=== PATIENT | female | born 1965 | race Caucasian/White ===

== ENCOUNTER 2016-11-06 08:03 | Emergency (ER) | payer OTHER ==
--- NOTE | 2016-11-06 08:34 | ERPHSYRPT ---
- History of Present Illness Time Seen by Provider: 11/06/16 08:19 Source: patient Exam Limitations: no limitations Patient Subjective Stated Complaint: pt arrived ambulatory, co dizziness since last night, had to have someone help her to bathroom due to dizziness, pressure to left side of face, had recent URI, and was on antiboitcs, no nausea or headache Triage Nursing Assessment: pt alert, resp easy, no facial drooping, moves all ext well, Physician History: This is a 51-year-old white female she arrives with complaints of feeling dizzy her described as a vertigo worse with turning her head symptoms since last night. She states last night she was dizzy enough to where she had to have someone help her to the bathroom. She states she is not having any movement problems she does experience dizziness she has no chest pain no shortness of breath she is moving all extremities she has had no speech problems. She does feel like she has pressure behind her left eye around her left eye she has had a recent sinus infection. Past medical history includes high blood pressure and seasonal allergies. Past surgical history includes bone spurs on her toes. Timing/Duration: yesterday (symptoms since last night) Severity: moderate Modifying Factors: Improves With: medication (patient took Augmentin yesterday) , movement (worse dizziness with moving her head). Worsens With: eating, immobilization, rest, acetaminophen, ibuprofen Associated Symptoms: No nausea, No vomiting, No abdominal pain, No shortness of breath, No heartburn, No diaphoresis, No cough, No chills, No chest pain, No fever, No headaches, No loss of appetite, No malaise, No rash, No syncope, No seizure, No weakness, No other Allergies/Adverse Reactions: Corticosteroids (Glucocorticoids) Allergy (Intermediate, Verified 09/07/15 15:53 ) CHF PT REPORTS STEROIDS GAVE HER CHF. Home Medications: Hydrochlorothiazide 25 mg [hydroDIURIL 25 MG] 25 mg PO DAILY 09/05/14 [ History] Potassium Chloride 10 Meq Tab* [Klor Con 10 MEQ] 10 meq PO DAILY 09/05/14 [ History] Metoprolol Succinate 50 mg [Toprol Xl 50 MG] 25 mg PO DAILY 06/01/15 [ History] Ranitidine HCl [Zantac] 150 mg PO DAILY 06/01/15 [History] Hx Tetanus, Diphtheria Vaccination/Date Given: Yes Hx Influenza Vaccination/Date Given: No Hx Pneumococcal Vaccination/Date Given: No Immunizations Up to Date: Yes - Review of Systems Constitutional: No Fever, No Chills Eyes: No Symptoms, Other (patient feels like she has pressure around her left eue), No Discharge, No Eye Pain, No Eye Redness, No Itchy, No Photophobia, No Tearing, No Vision Changes, No Double Vision, No Foreign Body Sensation Ears, Nose, & Throat: Nose Congestion, Sinus Drainage, No Ear Pain, No Ear Discharge, No Hearing Changes, No Tinnitus, No Nose Pain, No Nose Discharge, No Epistaxis, No Mouth Pain, No Mouth Swelling, No Loose Teeth, No Throat Pain, No Throat Swelling, No Hoarse, No Painful Swallowing, No Snoring, No Stridor Respiratory: No Cough, No Dyspnea Cardiac: No Chest Pain, No Edema, No Syncope Abdominal/Gastrointestinal: No Abdominal Pain, No Nausea, No Vomiting, No Diarrhea Genitourinary Symptoms: No Dysuria Musculoskeletal: No Back Pain, No Neck Pain Skin: No Rash Neurological: Dizziness, Vertigo (dizzy with turning her head), No Focal Weakness, No Gait Changes, No Headache, No Irritability, No Lethargy, No Paralysis, No Parasthesia, No Seizure, No Sensory Changes, No Speech Changes, No Tics, No Tremors Psychological: No Symptoms Endocrine: No Symptoms All Other Systems: Reviewed and Negative - Past Medical History Pertinent Past Medical History: Yes Neurological History: No Pertinent History ENT History: No Pertinent History Cardiac History: Hypertension Other Medical History: seasonal allergies - Past Surgical History Past Surgical History: Yes Neuro Surgical History: No Pertinent History Cardiac: No Pertinent History Respiratory: No Pertinent History Gastrointestinal: No Pertinent History Genitourinary: No Pertinent History Musculoskeletal: Other Female Surgical History: No Pertinent History Other Surgical History: bone spurs - Social History Smoking Status: Never smoker Exposure to second hand smoke: No Drug Use: none Patient Lives Alone: No - Female History Hx Last Menstrual Period: post - Nursing Vital Signs Nursing Vital Signs: Initial Vital Signs Temperature 97.4 F Temperature Source Oral Pulse Rate 87 Respiratory Rate 16 Blood Pressure [] 148/83 Pain Intensity 0 - Physical Exam General Appearance: no apparent distress, alert Eye Exam: PERRL/EOMI, eyes nml inspection Ears, Nose, Throat Exam: TMs normal, pharynx normal, moist mucous membranes, other (patient with yellow sinus drainage and boggy nasal mucosa no sinus tenderness with percussion) Neck Exam: normal inspection, non-tender, supple, full range of motion Respiratory Exam: normal breath sounds, lungs clear, No respiratory distress Cardiovascular Exam: regular rate/rhythm, normal heart sounds, normal peripheral pulses Gastrointestinal/Abdomen Exam: soft, normal bowel sounds, No tenderness, No mass Back Exam: normal inspection, normal range of motion, No CVA tenderness, No vertebral tenderness Extremity Exam: normal inspection, normal range of motion, pelvis stable Neurologic Exam: alert, oriented x 3, cooperative, normal mood/affect, nml cerebellar function, nml station & gait, sensation nml, No motor deficits Skin Exam: normal color, warm, dry, No rash Lymphatic Exam: No adenopathy SpO2 Interpretation: normal (99%) SpO2: 99 Oxygen Delivery: Room Air - Course Nursing assessment & vital signs reviewed: Yes EKG Interpreted by Me: RATE (77 bpm), Sinus Rhythm, NORMAL AXIS, Other (EKG normal sinus rhythm 77 bpm normal axis R's R prime in lead [address] or T wave changes noted) - CT Exams Head CT Interpretation: Discussed w/radiologist, Other (head CT without contrast: No acute intracranial abnormalities, incidental new pansinusitis) Ordered Tests: Active Orders 24 hr Category Date Time Status EKG-ER Only STAT Care 11/06/16 08:27 Active IV Insertion STAT Care 11/06/16 08:27 Active Orthostatic Vital Signs STAT Care 11/06/16 08:27 Active HEAD WITHOUT CONTRAST [CT] Stat Exams 11/06/16 08:28 Completed CBC W DIFF Stat Lab 11/06/16 08:20 Completed CMP Stat Lab 11/06/16 08:20 Completed Medication Summary Discontinued Medications Generic Name Dose Route Start Last Admin Trade Name Freq PRN Reason Stop Dose Admin Aspirin 162 mg 11/06/16 09:07 11/06/16 09:13 Baby Aspirin 81 Mg Chew PO 11/06/16 09:08 Not Given STAT ONE Lab/Rad Data: Laboratory Result Diagrams 11/06/16 08:20 11/06/16 08:20 Laboratory Results 11/06/16 11/06/16 Range/Units 08:20 08:20 WBC 7.4 (4.0-10.5) K/mm3 RBC 5.09 (4.1-5.4) M/mm3 Hgb 15.4 (12.0-16.0) gm/dl Hct 43.5 (35-47) % MCV 85.5 (78-100) fl MCH 30.3 (26-32) pg MCHC 35.4 (32-36) g/dl RDW 13.6 (11.5-14.0) % Plt Count 223 (150-450) K/mm3 MPV 9.5 (6-9.5) fl Gran % 52.9 (36.0-66.0) % Lymphocytes % 39.6 (24.0-44.0) % Monocytes % 5.1 (0.0-12.0) % Eosinophils % 2.3 (0.00-5.0) % Basophils % 0.1 (0.0-0.4) % Basophils # 0.01 (0-0.4) Sodium 141 (136-145) mEq/L Potassium 3.2 L (3.5-5.1) mEq/L Chloride 103 (98-107) mEq/L Carbon Dioxide 27.2 (21-32) mEq/L Anion Gap 14.1 (5-15) MEQ/L BUN 16 (9-20) mg/dL Creatinine 0.95 (0.55-1.30) mg/dl Estimated GFR > 60 ML/MIN Glucose 113 H (70-110) MG/DL Calcium 9.6 (8.5-10.1) mg/dL Total Bilirubin 0.7 (0.2-1.0) mg/dL AST 27 (15-37) U/L ALT 62 (12-78) U/L Alkaline Phosphatase 70 (46-116) U/L Serum Total Protein 8.1 (6.4-8.2) gm/dL Albumin 4.3 (3.4-5.0) g/dL - Progress Progress: improved Progress Note: 11/06/16 08:37 This is a 51-year-old white female with history of high blood pressure seasonal allergies who was recently had a sinus infection and has been on antibiotics past she arrives with complaint of dizziness worse with turning her head she states that she was unstable walking secondary to this vertigo dizziness which is to be a vertigo and had to have somebody get to the bathroom last night she has not been having any problems moving she has no focal weakness she does feel some pressure in her left maxillary region and inferior to her eye, She states that she took an Augmentin tablet yesterday. Patient arrives with an increased blood pressure she states her blood pressure is up because "I am mad" and she also did not take her morning blood pressure medications. She has no chest pain no shortness of breath she has no facial droop or problems moving. 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 Will go ahead and obtain CT of head CBC CMP EKG orthostatic vital signs. 11/06/16 09:[address] remarkable for sinusitis CBC essentially normal, chemistry remarkable for a potassium of 3.2 otherwise essentially normal. I have offered patient Antivert however she does not want this. I've offered patient aspirin 162 mg, she does not want this either. Will write for Augmentin 500 mg 3 times a day for 10 days. Will release patient. Patient's blood pressure is improved will have her take her home medications which include hydrochlorothiazide Toprol and potassium. 11/06/16 09:11 - Departure Time of Disposition: 09:11 Departure Disposition: Home Clinical Impression: Vertigo Sinusitis Qualifiers: Sinusitis location: unspecified location Chronicity: acute Recurrence: not specified as recurrent Qualified Code(s): J01.90 - Acute sinusitis, unspecified Condition: Fair Critical Care Time: No Referrals: INESSA DARBY [Primary Care Provider] - Additional Instructions: Return home. Plenty of fluids. Augmentin 500 mg orally 3 times a day for 10 days. Follow-up with your family doctor follow-up return for acute distress or for severe symptoms. . Prescriptions: Amox Tr/Potass Clav. 500 mg [Augmentin 500-125 Tablet] 500 mg PO TID #30 tablet
[2016-11-06 08:50] LABS: BASOPHIL % 0.1 % (0.0-0.4); Eosinophil % 2.3 % (0.00-5.0); Granulocytes % 52.9 % (36.0-66.0); Lymphocytes % 39.6 % (24.0-44.0); Mean Cell Volume 85.5 fl (78-100); Mean Corpuscular Hemoglobin 30.3 pg (26-32); Mean Platelet Volume 9.5 fl (6-9.5); Monocytes % 5.1 % (0.0-12.0); Platelet Count 223 K/mm3 (150-450); Red Blood Count 5.09 M/mm3 (4.1-5.4); Red Cell Distribution Width 13.6 % (11.5-14.0); White Blood Count 7.4 K/mm3 (4.0-10.5)
--- NOTE | 2016-11-06 09:00 | XRAY ---
Indication: Intermittent vertigo. Multiple contiguous axial images obtained through the head without contrast. Comparison: April 23, 2007. Again normal-appearing brain parenchyma, ventricles, and bony calvarium. There is now near-complete opacification of both sphenoid sinuses with lesser degree both ethmoid and left maxillary sinuses. Mastoid air cells are pneumatized and clear. Impression: Again no acute intracranial abnormalities. Incidental new pansinusitis. CTDI 70.21
[2016-11-06 09:04] VITALS: O2SAT 99
[2016-11-06 09:07] LABS: ALBUMIN 4.3 g/dL (3.4-5.0); ALKALINE PHOSPHATASE 70 U/L (46-116); ANION GAP 14.1 MEQ/L (5-15); BILIRUBIN,TOTAL 0.7 mg/dL (0.2-1.0); BLOOD UREA NITROGEN 16 mg/dL (9-20); CHLORIDE 103 mEq/L (98-107); Carbon Dioxide 27.2 mEq/L (21-32); Glucose 113 MG/DL (70-110); Potassium 3.2 mEq/L (3.5-5.1); SGOT/AST 27 U/L (15-37); SGPT/ALT 62 U/L (12-78); SODIUM 141 mEq/L (136-145); Total Protein 8.1 gm/dL (6.4-8.2)
[2016-11-06] MEDS ORDERED: BABY ASPIRIN 81 MG CHEW PO ONE (09:07)
[2016-11-06 09:46] VITALS: BP 146/84; PULSE 79
== END 2016-11-06 09:46 | disposition home or self-care (01) ==
LOC: ED 08:03
DX: J01.90 Acute sinusitis, unspecified (principal); R42 Dizziness and giddiness; I10 Essential (primary) hypertension
CPT/HCPCS: 36000; 36415; 70450; 80053; 85025; 93005; 99283; 99284

== ENCOUNTER 2017-03-07 23:36 | Emergency (ER) | payer OTHER ==
[2017-03-07 23:48] VITALS: BP 156/82; PULSE 72; O2SAT 98
--- NOTE | 2017-03-08 00:02 | ERPHSYRPT ---
- History of Present Illness Time Seen by Provider: 03/07/17 23:50 Source: patient Exam Limitations: no limitations Patient Subjective Stated Complaint: patient woke up tonite with dizzyness and states she has sinus infection causing her to have vertigo and shes out of antibiotics for it. states when she moved her head at all she becomes very dizzy Triage Nursing Assessment: pt alert nad orietned x3, pupils perrla2, lung sounds clear, pulses strong and equal bilateral, patients gait steady ambulated to bed well from waiting room. Physician History: The patient is a 52-year-old female who complains of dizziness that she states is caused by sinusitis. She had some sinus pain about a week ago. She took 3 days of amoxicillin that she had left over that resulted in improvement. Since the amoxicillin, things began to get worse. Tonight when she moves her head from side to side or up and down, she gets dizzy. The room is not spinning but she feels like her brain is moving. October 2016 she had the same thing happened to her. She was seen in this emergency room and a head CT was done at that time. The CT scan showed acute pansinusitis. She was given Augmentin with good results. Her past medical history is significant for sinusitis, hypertension, and anxiety. Timing/Duration: week(s) (1) Severity: moderate Character of Deficits: other (dizziness) Deficits: cannot stand Baseline/Normal Cognition: alert oriented x 3 Current Cognition: alert oriented x 3 Baseline Gait: walks w/o assistance Associated Symptoms: ringing in ears (chronic) Allergies/Adverse Reactions: Corticosteroids (Glucocorticoids) Allergy (Intermediate, Verified 09/07/15 15:53 ) CHF PT REPORTS STEROIDS GAVE HER CHF. Home Medications: Hydrochlorothiazide 25 mg [hydroDIURIL 25 MG] 25 mg PO DAILY 09/05/14 [ History] Potassium Chloride 10 Meq Tab* [Klor Con 10 MEQ] 10 meq PO DAILY 09/05/14 [ History] Metoprolol Succinate 50 mg [Toprol Xl 50 MG] 25 mg PO DAILY 06/01/15 [ History] Ranitidine HCl [Zantac] 150 mg PO DAILY 06/01/15 [History] Hx Tetanus, Diphtheria Vaccination/Date Given: Yes Hx Influenza Vaccination/Date Given: No Hx Pneumococcal Vaccination/Date Given: No Immunizations Up to Date: Yes - Review of Systems Constitutional: No Fever, No Chills Eyes: No Symptoms Ears, Nose, & Throat: Sinus Drainage Respiratory: No Cough, No Dyspnea Cardiac: No Chest Pain, No Edema, No Syncope Abdominal/Gastrointestinal: No Abdominal Pain, No Nausea, No Vomiting, No Diarrhea Genitourinary Symptoms: No Dysuria Musculoskeletal: No Back Pain, No Neck Pain Skin: No Rash Neurological: Dizziness Psychological: No Symptoms Endocrine: No Symptoms Hematologic/Lymphatic: No Symptoms Immunological/Allergic: No Symptoms All Other Systems: Reviewed and Negative - Past Medical History Pertinent Past Medical History: Yes Neurological History: No Pertinent History ENT History: No Pertinent History Cardiac History: Hypertension Other Medical History: seasonal allergies - Past Surgical History Past Surgical History: Yes Neuro Surgical History: No Pertinent History Cardiac: No Pertinent History Respiratory: No Pertinent History Gastrointestinal: No Pertinent History Genitourinary: No Pertinent History Musculoskeletal: Other Female Surgical History: No Pertinent History Other Surgical History: bone spurs - Social History Smoking Status: Never smoker Exposure to second hand smoke: No Drug Use: none Patient Lives Alone: No - Nursing Vital Signs Nursing Vital Signs: Initial Vital Signs Temperature 98.4 F Temperature Source Oral Pulse Rate 72 Respiratory Rate 20 Blood Pressure [Right Arm] 156/82 Pain Intensity 0 - [place]strander Coma Scale Best Eye Response (Ostrander): (4) open spontaneously Best Verbal Response (Ostrander): (5) oriented Best Motor Response (David): (6) obeys commands [place] Total: 15 - Physical Exam General Appearance: no apparent distress, alert Eye Exam: bilateral eye: normal inspection, PERRL, EOMI Ears, Nose, Throat Exam: normal ENT inspection, moist mucous membranes Neck Exam: normal inspection, non-tender, supple Respiratory: normal breath sounds, lungs clear, airway intact, No respiratory distress Cardiovascular: regular rate/rhythm, No edema Gastrointestinal: soft, No tenderness, No distention Pelvic Exam: not done Rectal Exam: not done Back Exam: normal inspection Extremity Exam: normal inspection, No pedal edema 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 Take Augmentin 875 twice a day for 10 days. You tell me that high doses of steroids has caused congestive heart failure in the past. Today I only want you to take 1 mg daily of prednisone for 14 days. If you notice any rapid increase in weight gain, stopped taking the prednisone and contact your family doctor. Prescriptions: Amoxicillin/Potassium Clav [Augmentin 875-125 Tablet] 875 mg PO BID #20 tablet Prednisone 10 mg [Deltasone 10 mg] 1 mg PO UD #14 tablet
[2017-03-08] MEDS ORDERED: Augmentin 875-125 Tablet PO ONE (00:24)
[2017-03-08] MEDS ORDERED: Augmentin 875-125 Tablet ONE (00:32)
== END 2017-03-08 00:36 | disposition home or self-care (01) ==
LOC: ED 23:36
DX: J32.9 Chronic sinusitis, unspecified (principal); R42 Dizziness and giddiness; I10 Essential (primary) hypertension
CPT/HCPCS: 99283; A9270-GY

== ENCOUNTER 2018-03-25 08:51 | Emergency (ER) | payer OTHER ==
--- NOTE | 2018-03-25 09:19 | ERPHSYRPT ---
- History of Present Illness Time Seen by Provider: 03/25/18 08:57 Source: patient Exam Limitations: no limitations Patient Subjective Stated Complaint: Pt states "I have had a sore throat for the past two weeks. I went to the clinic and they say that I cannot keep taking antibiotics so I came here. I have an appointment with kristen this afternoon but you did not look busy so I came here." Triage Nursing Assessment: Pt alert and oriented X 3, skin pwd Pt ambulates with an upright steady gait, able to speak in clear full sentences. throat appearance is red. Physician History: mild to mod sorethroat for 2 weeks, +cough and painful swallowing, speech fluent , no rash, no fever, no injury, able to eat without difficulty Allergies/Adverse Reactions: Corticosteroids (Glucocorticoids) Allergy (Intermediate, Verified 09/07/15 15:53 ) CHF PT REPORTS STEROIDS GAVE HER CHF. Home Medications: Hydrochlorothiazide 25 mg [hydroDIURIL 25 MG] 25 mg PO DAILY 09/05/14 [ History] Potassium Chloride 10 Meq Tab* [Klor Con 10 MEQ] 10 meq PO DAILY 09/05/14 [ History] Metoprolol Succinate 50 mg [Toprol Xl 50 MG] 25 mg PO DAILY 06/01/15 [ History] Ranitidine HCl [Zantac] 150 mg PO DAILY 06/01/15 [History] Hx Tetanus, Diphtheria Vaccination/Date Given: No Hx Influenza Vaccination/Date Given: No Hx Pneumococcal Vaccination/Date Given: No Immunizations Up to Date: Yes - Review of Systems Constitutional: No Fever Eyes: No Eye Redness Ears, Nose, & Throat: Throat Pain, No Mouth Swelling, No Hoarse Respiratory: Cough, No Cyanosis, No Wheezing Cardiac: No Chest Pain Abdominal/Gastrointestinal: No Abdominal Pain, No Vomiting Musculoskeletal: No Neck Pain Skin: No Rash Neurological: No Dizziness Psychological: No Symptoms - Past Medical History Pertinent Past Medical History: Yes Neurological History: No Pertinent History ENT History: No Pertinent History Cardiac History: Hypertension Other Medical History: seasonal allergies - Past Surgical History Past Surgical History: Yes Neuro Surgical History: No Pertinent History Cardiac: No Pertinent History Respiratory: No Pertinent History Gastrointestinal: No Pertinent History Genitourinary: No Pertinent History Musculoskeletal: Other Female Surgical History: No Pertinent History Other Surgical History: bone spurs - Social History Smoking Status: Never smoker Exposure to second hand smoke: No Drug Use: none Patient Lives Alone: No - Female History Hx Last Menstrual Period: menopause - Nursing Vital Signs Nursing Vital Signs: Initial Vital Signs Temperature 98.3 F 03/25/18 08:57 Pulse Rate 90 03/25/18 08:57 Respiratory Rate 18 03/25/18 08:57 Blood Pressure 153/86 03/25/18 08:57 O2 Sat by Pulse Oximetry 99 03/25/18 08:57 Pain Scale Pain Intensity 4 - Physical Exam General Appearance: no apparent distress Eye Exam: eyes nml inspection Ears, Nose, Throat Exam: moist mucous membranes, pharyngeal erythema, other (no peritonsillar mass) Neck Exam: normal inspection, supple, full range of motion Respiratory Exam: normal breath sounds, lungs clear Cardiovascular Exam: regular rate/rhythm Gastrointestinal/Abdomen Exam: No distention Extremity Exam: normal range of motion Neurologic Exam: alert, oriented x 3, cooperative Skin Exam: normal color, warm, dry SpO2 Interpretation: normal SpO2: 99 Oxygen Delivery: Room Air - Course Nursing assessment & vital signs reviewed: Yes - Radiology Exams Chest X-ray Interpretation: Discussed w/ radiologist, No Infiltrates Ordered Tests: Active Orders 24 hr Category Date Time Status CHEST 2 VIEWS (PA AND LAT) Stat Exams 03/25/18 09:32 Completed [place] Screen Stat Lab 03/25/18 09:25 Completed Lab/Rad Data: Laboratory Results 03/25/18 03/25/18 Range/Units 09:57 09:25 Monoscreen NEGATIVE (Negative) Group A Strep Antibody NEGATIVE (NEGATIVE) - Progress Progress: unchanged Air Movement: good Progress Note: 03/25/18 10:[address] Subramanian today as scheduled previously, return if worse, pt refused pain med or antibiotic, differential d/w pt as viral syndrome or cancer Counseled pt/family regarding: lab results, diagnosis, need for follow-up, rad results - Departure Time of Disposition: 10:54 Departure Disposition: Home Clinical Impression: Sore throat Condition: Stable Critical Care Time: No Referrals: IENSSA SUBRAMANIAN [Primary Care Provider] - Instructions: Sore Throat, Adult (DC)
--- NOTE | 2018-03-25 09:40 | XRAY ---
Exam: Two-view chest from 03/25/2018. Comparison: Two-view chest from 09/20/2014. Indication: Cough, sore throat. Findings: Upright PA and lateral chest films were obtained. The heart size and contour are normal. The jovanna and mediastinal structures appear unremarkable. There is slight tortuosity of the descending thoracic aorta. A stable small calcified granuloma is seen at the lateral left lung base. There has been a good inspiratory effort. No air space infiltrates, vascular congestion, pneumothorax, or pleural fluid is seen. Moderate anterior lateral osteophyte formation is seen at several contiguous lower thoracic vertebra. The visualized upper abdomen appears unremarkable. Impression: 1. No infiltrates to suggest pneumonia or other acute cardiopulmonary disease is seen.
[2018-03-25 11:01] VITALS: BP 156/90; PULSE 65; O2SAT 97
== END 2018-03-25 11:05 | disposition home or self-care (01) ==
LOC: ED 08:51
DX: J02.9 Acute pharyngitis, unspecified (principal); I10 Essential (primary) hypertension
CPT/HCPCS: 36415; 71046; 86308; 87651; 99284

== ENCOUNTER 2018-04-13 12:10 | Emergency (ER) | payer OTHER ==
--- NOTE | 2018-04-13 12:59 | ERPHSYRPT ---
- History of Present Illness Time Seen by Provider: 04/13/18 12:53 Source: patient Exam Limitations: no limitations Patient Subjective Stated Complaint: pt states she dropped a cinder block on her left foot approx 30 mins [employer]. reports pain and swelling to foot. Triage Nursing Assessment: pt is aox3, pupils perrl, resps easy and non labored , skin is pink warm dry. laceration measuring approx 4 cm in length, bruising and minimal bleeding is present upon exam, skin is well approximated, slight swelling noted to dorsal left foot. sensation is intact, pedal pulses strong and equal bilat. pt was ambulatory to exam room. pt is unable to move left great toe due to previous surgery to remove multiple bone spurs. Physician History: The patient is a 53-year-old female with her daughter complaining that she accidentally dropped a concrete block on her left foot prior to arrival. She and her daughter were carrying the concrete block while cleaning up her daughter 's yard. There was some bleeding over the great toe joint. There is minimal pain. She did not take any Tylenol or ibuprofen. She's had bone spurs removed from that toe joint previously. She denies numbness or tingling. Her last tetanus vaccination was 2 years ago. Method of Injury: direct blow Occurred: just prior to arrival Quality: constant Severity of Pain-Max: mild Severity of Pain-Current: mild Lower Extremities Pain: foot: left, 1st toe: left Modifying Factors: Improves With: nothing Associated Symptoms: none Allergies/Adverse Reactions: Androgenic Anabolic Steroid Allergy (Verified 04/13/18 12:35) Hx Tetanus, Diphtheria Vaccination/Date Given: Yes Hx Influenza Vaccination/Date Given: No Hx Pneumococcal Vaccination/Date Given: No Immunizations Up to Date: Yes - Review of Systems Constitutional: No Fever, No Chills Eyes: No Symptoms Ears, Nose, & Throat: No Symptoms Respiratory: No Cough, No Dyspnea Cardiac: No Chest Pain, No Edema, No Syncope Abdominal/Gastrointestinal: No Abdominal Pain, No Nausea, No Vomiting, No Diarrhea Genitourinary Symptoms: No Dysuria Musculoskeletal: Injury, Joint Pain, No Back Pain, No Neck Pain Skin: No Rash Neurological: No Dizziness, No Focal Weakness, No Sensory Changes Psychological: No Symptoms Endocrine: No Symptoms Hematologic/Lymphatic: No Symptoms Immunological/Allergic: No Symptoms All Other Systems: Reviewed and Negative - Past Medical History Pertinent Past Medical History: No - Past Surgical History Past Surgical History: Yes Musculoskeletal: Orthopedic Surgery Female Surgical History: Other Other Surgical History: bone spurs left foot - Social History Smoking Status: Never smoker Drug Use: none Patient Lives Alone: No - Female History Hx Now: No - Nursing Vital Signs Nursing Vital Signs: Initial Vital Signs Temperature 97.7 F 04/13/18 12:14 Pulse Rate 80 04/13/18 12:14 Respiratory Rate 20 04/13/18 12:14 Blood Pressure 164/89 04/13/18 12:14 O2 Sat by Pulse Oximetry 99 04/13/18 12:14 Pain Scale Pain Intensity 3 - Physical Exam General Appearance: alert Eyes, Ears, Nose, Throat Exam: moist mucous membranes Neck Exam: non-tender, supple Cardiovascular/Respiratory Exam: chest non-tender, normal breath sounds, regular rate/rhythm, no respiratory distress Gastrointestinal/Abdominal Exam: non-tender, guarding Back Exam: normal inspection, No vertebral tenderness Hips Exam: bilateral: normal inspection Legs Exam: bilateral leg: normal inspection Knees Exam: bilateral knee: normal inspection Ankle Exam: bilateral ankle: normal inspection Foot Exam: right foot: normal inspection, left foot: soft tissue tenderness, swelling (left MTP joint) Neuro/Tendon Exam: normal sensation, normal motor functions Mental Status Exam: alert, oriented x 3, cooperative Skin Exam: normal color, warm, dry, ecchymosis (left MTP joint) SpO2 Interpretation: normal SpO2: 99 Oxygen Delivery: Room Air Ordered Tests: Active Orders 24 hr Category Date Time Status FOOT (MINIMUM 3 VIEWS) Stat Exams 04/13/18 13:03 Taken - Departure Time of Disposition: 13:33 Departure Disposition: Home Clinical Impression: Contusion of left foot Condition: Stable Critical Care Time: No Referrals: INESSA DARBY [Primary Care Provider] - Additional Instructions: You have a contusion on your left foot. There are no broken bones. Take Tylenol and ibuprofen as needed. Apply ice to the area as needed. Follow-up as needed.
[2018-04-13 13:42] VITALS: BP 127/80; PULSE 72; O2SAT 97
--- NOTE | 2018-04-13 21:35 | XRAY ---
Indication: Pain and laceration following injury. Comparison: None 3 nonweightbearing views of the left foot demonstrates large posterior heel spur, mild 1st MTP degenerative arthropathy, and mild anterior forefoot soft tissue swelling. No other bony, articular, or soft tissue abnormalities.
== END 2018-04-13 13:50 | disposition home or self-care (01) ==
LOC: ED 12:10 → MERGE 12:10 → ED 13:50
DX: S90.32XA Contusion of left foot, initial encounter (principal); W22.8XXA Striking against or struck by other objects, initial encounter
CPT/HCPCS: 73630; 99283

== ENCOUNTER 2018-08-29 17:58 | Emergency (ER) | payer OTHER ==
--- NOTE | 2018-08-29 18:29 | ERPHSYRPT ---
- History of Present Illness Time Seen by Provider: 08/29/18 18:25 Source: patient Exam Limitations: no limitations Physician History: 53-year-old white female with history of high blood pressure, reflux, hypokalemia Patient arrives with complaint of palpitations lasting all day. She states that she is not having chest pain no shortness of breath no nausea no vomiting. Patient states that she has chronic reflux which has been treated in the past and she states she is planning on seeing a mica plate layer hand. Past medical history includes orthopedic surgery, high blood pressure, reflux, hypokalemia Past surgical history includes bone spurs of the left foot Social history patient denies tobacco alcohol or illicit drug use. Timing/Duration: today Severity: moderate Modifying Factors: Improves With: nothing Associated Symptoms: No nausea, No vomiting, No abdominal pain, No shortness of breath, No heartburn, No diaphoresis, No cough, No chills, No chest pain, No fever, No headaches, No loss of appetite, No malaise, No rash, No syncope, No seizure, No weakness Allergies/Adverse Reactions: Corticosteroids (Glucocorticoids) Allergy (Intermediate, Verified 08/29/18 18:13 ) CHF PT REPORTS STEROIDS GAVE HER CHF. Androgenic Anabolic Steroid Allergy (Verified 08/29/18 18:13) Home Medications: Hydrochlorothiazide 25 mg [hydroDIURIL 25 MG] 25 mg PO DAILY 09/05/14 [ History] Potassium Chloride 10 Meq Tab* [Klor Con 10 MEQ] 10 meq PO BID 09/05/14 [ History] Metoprolol Succinate 50 mg [Toprol Xl 50 MG] 25 mg PO DAILY 06/01/15 [ History] Fluticasone Propionate [Flonase NASAL] 16 gm NS DAILY 08/29/18 [History] Omeprazole Magnesium [Prilosec Otc] 20 mg PO DAILY 08/29/18 [History] Hx Tetanus, Diphtheria Vaccination/Date Given: No Hx Influenza Vaccination/Date Given: No Hx Pneumococcal Vaccination/Date Given: No - Review of Systems Constitutional: No Fever, No Chills Eyes: No Symptoms Ears, Nose, & Throat: No Symptoms Respiratory: No Cough, No Dyspnea Cardiac: Palpitations, No Chest Pain, No Edema, No Syncope, No Orthopnea, No PND Abdominal/Gastrointestinal: No Abdominal Pain, No Nausea, No Vomiting, No Diarrhea Genitourinary Symptoms: No Dysuria Musculoskeletal: No Back Pain, No Neck Pain Skin: No Rash Neurological: No Dizziness, No Focal Weakness, No Sensory Changes Psychological: No Symptoms Endocrine: No Symptoms All Other Systems: Reviewed and Negative - Past Medical History Pertinent Past Medical History: Yes Neurological History: No Pertinent History ENT History: No Pertinent History Cardiac History: Hypertension Other Medical History: seasonal allergies - Past Surgical History Past Surgical History: Yes Neuro Surgical History: No Pertinent History Cardiac: No Pertinent History Respiratory: No Pertinent History Gastrointestinal: No Pertinent History Genitourinary: No Pertinent History Musculoskeletal: Orthopedic Surgery, Other Female Surgical History: No Pertinent History, Other Other Surgical History: bone spurs - Social History Smoking Status: Never smoker Exposure to second hand smoke: No Drug Use: none Patient Lives Alone: No - Nursing Vital Signs Nursing Vital Signs: Initial Vital Signs Temperature 97.3 F 08/29/18 18:01 Pulse Rate 82 08/29/18 18:01 Respiratory Rate 16 08/29/18 18:01 Blood Pressure 175/82 08/29/18 18:01 O2 Sat by Pulse Oximetry 100 08/29/18 18:01 Pain Scale Pain Intensity 0 - Physical Exam General Appearance: no apparent distress, alert Eye Exam: PERRL/EOMI, eyes nml inspection Ears, Nose, Throat Exam: normal ENT inspection, TMs normal, pharynx normal, moist mucous membranes Neck Exam: normal inspection, non-tender, supple, full range of motion Respiratory Exam: normal breath sounds, lungs clear, No respiratory distress Cardiovascular Exam: regular rate/rhythm, normal heart sounds, normal peripheral pulses, capillary refill <2 sec Gastrointestinal/Abdomen Exam: soft, normal bowel sounds, No tenderness, No mass Back Exam: normal inspection, normal range of motion, No CVA tenderness, No vertebral tenderness Extremity Exam: normal inspection, normal range of motion, pelvis stable Neurologic Exam: alert, oriented x 3, cooperative, storage consultant II-XII 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 as tested, normal mood/affect, nml cerebellar function, nml station & gait, sensation nml, No motor deficits Skin Exam: normal color, warm, dry, No rash Lymphatic Exam: No adenopathy SpO2 Interpretation: normal - Course Nursing assessment & vital signs reviewed: Yes EKG Interpreted by Me: RATE (73 bpm), Sinus Rhythm, NORMAL AXIS, Other (EKG sinus rhythm, 73 bpm, normal axis, no acute ST or T wave changes, no changes compared to November 06, 2016) Ordered Tests: Active Orders 24 hr Category Date Time Status EKG-ER Only STAT Care 08/29/18 18:22 Active IV Insertion STAT Care 08/29/18 18:22 Active AMYLASE Stat Lab 08/29/18 18:40 Completed CBC W DIFF Stat Lab 08/29/18 18:40 Completed CMP Stat Lab 08/29/18 18:40 Completed LIPASE Stat Lab 08/29/18 18:40 Completed TROPONIN Q3H Lab 08/29/18 18:40 Completed TROPONIN Q3H Lab 08/29/18 21:30 Ordered TROPONIN Q3H Lab 08/30/18 00:30 Ordered TROPONIN Q3H Lab 08/30/18 03:30 Ordered TROPONIN Q3H Lab 08/30/18 06:30 Ordered TSH [TSH, 3RD Generation] Stat Lab 08/29/18 18:40 Received Medication Summary Discontinued Medications Generic Name Dose Route Start Last Admin Trade Name Freq PRN Reason Stop Dose Admin Potassium Bicarbonate 50 meq 08/29/18 19:28 08/29/18 19:44 K-Lyte 25 Meq PO 08/29/18 19:29 50 meq STAT ONE Administration Potassium Bicarbonate Confirm 08/29/18 19:37 K-Lyte 25 Meq Administered 08/29/18 19:38 Dose 50 meq .ROUTE .STK-MED ONE Lab/Rad Data: Laboratory Result Diagrams 08/29/18 18:40 08/29/18 18:40 Laboratory Results 08/29/18 08/29/18 08/29/18 Range/Units 18:40 18:40 18:40 WBC (4.0-10.5) K/mm3 RBC (4.1-5.4) M/mm3 Hgb (12.0-16.0) gm/dl Hct (35-47) % MCV (78-100) fl MCH (26-32) pg MCHC (32-36) g/dl RDW (11.5-14.0) % Plt Count (150-450) K/mm3 MPV (6-9.5) fl Gran % (36.0-66.0) % Eos # (Auto) (0-0.5) Absolute Lymphs (auto) (1.0-4.6) Absolute Monos (auto) (0.0-1.3) Lymphocytes % (24.0-44.0) % Monocytes % (0.0-12.0) % Eosinophils % (0.00-5.0) % Basophils % (0.0-0.4) % Absolute Granulocytes (1.4-6.9) Basophils # (0-0.4) Sodium 140 (137-145) mmol/L Potassium 3.2 L (3.5-5.1) mmol/L Chloride 102 (98-107) mmol/L Carbon Dioxide 27 (22-30) mmol/L Anion Gap 13.7 (5-15) MEQ/L BUN 15 (7-17) mg/dL Creatinine 0.77 (0.52-1.04) mg/dL Estimated GFR > 60.0 ML/MIN Glucose 102 (74-106) mg/dL Calcium 9.7 (8.4-10.2) mg/dL Total Bilirubin 0.70 (0.2-1.3) mg/dL AST 28 (14-36) U/L ALT 20 (0-35) U/L Alkaline Phosphatase 76 (38-126) U/L Troponin I < 0.012 (0.000-0.034) ng/mL Serum Total Protein 7.4 (6.3-8.2) g/dL Albumin 4.6 (3.5-5.0) g/dL Amylase 56 (30-110) U/L Lipase 140 (23-300) U/L Free T4 1.09 (0.76-1.46) ng/dL 12//18 Range/Units 18:40 WBC 5.5 (4.0-10.5) K/mm3 RBC 4.59 (4.1-5.4) M/mm3 Hgb 13.8 (12.0-16.0) gm/dl Hct 39.3 (35-47) % MCV 85.6 (78-100) fl MCH 30.1 (26-32) pg MCHC 35.1 (32-36) g/dl RDW 13.6 (11.5-14.0) % Plt Count 190 (150-450) K/mm3 MPV 9.4 (6-9.5) fl Gran % 45.9 (36.0-66.0) % Eos # (Auto) 0.17 (0-0.5) Absolute Lymphs (auto) 2.34 (1.0-4.6) Absolute Monos (auto) 0.43 (0.0-1.3) Lymphocytes % 42.9 (24.0-44.0) % Monocytes % 7.9 (0.0-12.0) % Eosinophils % 3.1 (0.00-5.0) % Basophils % 0.2 (0.0-0.4) % Absolute Granulocytes 2.50 (1.4-6.9) Basophils # 0.01 (0-0.4) Sodium (137-145) mmol/L Potassium (3.5-5.1) mmol/L Chloride (98-107) mmol/L Carbon Dioxide (22-30) mmol/L Anion Gap (5-15) MEQ/L BUN (7-17) mg/dL Creatinine (0.52-1.04) mg/dL Estimated GFR ML/MIN Glucose (74-106) mg/dL Calcium (8.4-10.2) mg/dL Total Bilirubin (0.2-1.3) mg/dL AST (14-36) U/L ALT (0-35) U/L Alkaline Phosphatase (38-126) U/L Troponin I (0.000-0.034) ng/mL Serum Total Protein (6.3-8.2) g/dL Albumin (3.5-5.0) g/dL Amylase (30-110) U/L Lipase (23-300) U/L Free T4 (0.76-1.46) ng/dL - Progress Progress: improved Progress Note: 08/29/18 19:46 53-year-old white female arrives with complaint of palpitations throughout the day today she denies any chest pain no shortness breath no nausea no vomiting. Patient's EKG remarkable for sinus rhythm [address] or T wave changes no change from November 06, 2016 Patient's vitals have been stable Patient's CBC CMP are normal with the exception of a potassium of 3.2 patient's free T4 is normal. patient does state that she has been under streess lately. Will go ahead and release patient she has had no chest pain. Patient does state that her blood pressure has been running somewhat low on she' s backed off on her metoprolol to once every 3 days she also states that she is taking hydrochlorothiazide. Will have patient go home rest plenty of fluids. Will give patient 50 mEq of potassium chloride orally. Patient is to follow-up with Dr. Subramanian she is call tomorrow to arrange an appointment. She is to return for acute distress or for severe symptoms. . - Departure Time of Disposition: 19:48 Departure Disposition: Home Clinical Impression: Palpitations, Hypokalemia Condition: Fair Critical Care Time: No Referrals: INESSA SUBRAMANIAN [Primary Care Provider] - Instructions: Palpitations (DC) Additional Instructions: Return home. Plenty of fluids. Medications as prescribed by your family doctor. Follow-up with your family doctor call tomorrow morning and arrange an appointment. Return for acute distress or for severe symptoms.
[2018-08-29 18:46] LABS: BASOPHIL % 0.2 % (0.0-0.4); Basophil (Absolute #) 0.01 (0-0.4); Eosinophil % 3.1 % (0.00-5.0); Eosinophil (Absolute #) 0.17 (0-0.5); Granulocytes % 45.9 % (36.0-66.0); Hematocrit 39.3 % (35-47); Hemoglobin 13.8 gm/dl (12.0-16.0); Lymphocyte (Absolute #) 2.34 (1.0-4.6); Lymphocytes % 42.9 % (24.0-44.0); Mean Cell Volume 85.6 fl (78-100); Mean Corpuscular Hemoglobin 30.1 pg (26-32); Mean Corpuscular Hgb Concent. 35.1 g/dl (32-36); Mean Platelet Volume 9.4 fl (6-9.5); Monocyte (Absolute #) 0.43 (0.0-1.3); Monocytes % 7.9 % (0.0-12.0); Platelet Count 190 K/mm3 (150-450); Red Blood Count 4.59 M/mm3 (4.1-5.4); Red Cell Distribution Width 13.6 % (11.5-14.0); White Blood Count 5.5 K/mm3 (4.0-10.5)
[2018-08-29 19:17] LABS: ALBUMIN 4.6 g/dL (3.5-5.0); ALKALINE PHOSPHATASE 76 U/L (38-126); AMYLASE 56 U/L (30-110); ANION GAP 13.7 MEQ/L (5-15); BLOOD UREA NITROGEN 15 mg/dL (7-17); CHLORIDE 102 mmol/L (98-107); Calcium 9.7 mg/dL (8.4-10.2); Carbon Dioxide 27 mmol/L (22-30); Creatinine 1 0.77 mg/dL (0.52-1.04); Glucose 102 mg/dL (74-106); LIPASE 140 U/L (23-300); Potassium 3.2 mmol/L (3.5-5.1); SGOT/AST 28 U/L (14-36); SGPT/ALT 20 U/L (0-35); SODIUM 140 mmol/L (137-145); Total Protein 7.4 g/dL (6.3-8.2)
[2018-08-29] MEDS ORDERED: K-LYTE 25 MEQ PO ONE (19:28)
[2018-08-29] MEDS ORDERED: K-LYTE 25 MEQ ONE (19:37)
[2018-08-29 19:43] VITALS: BP 140/88; PULSE 68; O2SAT 98
== END 2018-08-29 20:35 | disposition home or self-care (01) ==
LOC: ED 17:58
DX: R00.2 Palpitations (principal); Z79.899 Other long term (current) drug therapy; E87.6 Hypokalemia
CPT/HCPCS: 36000; 36415; 80053; 82150; 83690; 84439; 84443; 84484; 85025; 93005; 99284; A9270-GY

== ENCOUNTER 2018-12-23 22:10 | Emergency (ER) | payer OTHER ==
--- NOTE | 2018-12-23 22:24 | ERPHSYRPT ---
- History of Present Illness Time Seen by Provider: 12/23/18 22:24 Historian: patient Exam Limitations: no limitations Physician History: 53 y/o white female with known gerdz on maximum meds for this. pt underwent upper endoscopy 11/18/18. pt to see her gi specialist this coming sunday. concerned because of some cp and spit up frothy fluids after ingesting 2 roll aid tabs. Timing/Duration: today Activities at Onset: other (post roll aids ingestion) Quality: burning, sharpness Abdominal Pain Onset Location: other (substernal) Pain Radiation: no radiation Severity of Pain-Max: mild Severity of Pain-Current: mild Modifying Factors: Improves With: antacids (improved now) Associated Symptoms: chest pain, No loss of appetite, No nausea, No vomiting Previous symptoms: same symptoms as today Allergies/Adverse Reactions: Corticosteroids (Glucocorticoids) Allergy (Intermediate, Verified 12/23/18 22:35 ) CHF PT REPORTS STEROIDS GAVE HER CHF. Androgenic Anabolic Steroid Allergy (Verified 12/23/18 22:35) egg Allergy (Verified 12/23/18 22:35) Home Medications: Potassium Chloride 10 Meq Tab* [Klor Con 10 MEQ] 8 meq PO BID 09/05/14 [ History] Fluticasone Propionate [Flonase NASAL] 16 gm NS DAILY 08/29/18 [History] Lansoprazole [Prevacid] 30 mg PO BID 12/23/18 [History] Loratadine 10 mg [Claritin 10 mg] 10 mg PO DAILY 12/23/18 [History] Hx Tetanus, Diphtheria Vaccination/Date Given: No Hx Influenza Vaccination/Date Given: No Hx Pneumococcal Vaccination/Date Given: No - Review of Systems Constitutional: No Symptoms Eyes: No Symptoms Ears, Nose, & Throat: No Symptoms Respiratory: No Symptoms Cardiac: Chest Pain Abdominal/Gastrointestinal: No Symptoms Genitourinary Symptoms: No Symptoms Musculoskeletal: No Symptoms Skin: No Symptoms Neurological: No Symptoms Psychological: No Symptoms Endocrine: No Symptoms Hematologic/Lymphatic: No Symptoms Immunological/Allergic: No Symptoms All Other Systems: Reviewed and Negative - Past Medical History Pertinent Past Medical History: Yes Neurological History: No Pertinent History ENT History: No Pertinent History Cardiac History: Hypertension Respiratory History: No Pertinent History Endocrine Medical History: No Pertinent History Musculoskeletal History: No Pertinent History GI Medical History: GERD History: No Pertinent History Psycho-Social History: No Pertinent History Female Reproductive Disorders: No Pertinent History Other Medical History: seasonal allergies - Past Surgical History Past Surgical History: Yes Neuro Surgical History: No Pertinent History Cardiac: No Pertinent History Respiratory: No Pertinent History Gastrointestinal: No Pertinent History Genitourinary: No Pertinent History Musculoskeletal: Orthopedic Surgery, Other Female Surgical History: No Pertinent History, Other Other Surgical History: bone spurs - Social History Smoking Status: Never smoker Exposure to second hand smoke: No Drug Use: none Patient Lives Alone: No - Nursing Vital Signs Nursing Vital Signs: Initial Vital Signs Pulse Rate 77 12/23/18 22:20 Respiratory Rate 16 12/23/18 22:20 Blood Pressure 156/90 12/23/18 22:20 O2 Sat by Pulse Oximetry 100 12/23/18 22:20 Pain Scale Pain Intensity 0 - Physical Exam General Appearance: no apparent distress, alert, anxiety Eye Exam: PERRL/EOMI, eyes nml inspection Ears, Nose, Throat Exam: normal ENT inspection, moist mucous membranes Neck Exam: normal inspection, non-tender, supple, full range of motion Respiratory Exam: normal breath sounds, chest tenderness, lungs clear, airway intact, No respiratory distress Cardiovascular Exam: regular rate/rhythm, normal heart sounds, normal peripheral pulses Pelvic Exam: not done Rectal Exam: not done Back Exam: normal inspection, normal range of motion, No CVA tenderness, No vertebral tenderness Extremity Exam: normal inspection, normal range of motion, pelvis stable Neurologic Exam: alert, oriented x 3, cooperative, baseball winder II-XII nml as tested Skin Exam: normal color, warm, dry Lymphatic Exam: adenopathy SpO2 Interpretation: normal O2 Delivery: Room Air - Course Nursing assessment & vital signs reviewed: Yes Ordered Tests: Active Orders 24 hr Category Date Time Status Undertaker Assistant STAT Care 12/23/18 22:41 Active EKG-ER Only STAT Care 12/23/18 22:41 Active BMP Stat Lab 12/23/18 23:05 Completed CBC W DIFF Stat Lab 12/23/18 23:05 Completed D-DIMER QUANTITATION Stat Lab 12/23/18 23:05 Completed TROPONIN Q3H Lab 12/23/18 23:05 Completed TROPONIN Q3H Lab 12/24/18 01:45 Ordered TROPONIN Q3H Lab 12/24/18 04:45 Ordered TROPONIN Q3H Lab 12/24/18 07:45 Ordered TROPONIN Q3H Lab 12/24/18 10:45 Ordered Medication Summary Discontinued Medications Generic Name Dose Route Start Last Admin Trade Name Cosme PRN Reason Stop Dose Admin Al Hydrox/Mg Hydrox/Simethicone Confirm 12/23/18 22:58 Maalox Es 30 Ml Unit Dose Administered 12/23/18 22:59 Dose 30 ml .ROUTE .STK-MED ONE Lidocaine HCl Confirm 12/23/18 22:58 Xylocaine Hcl Viscous * Administered 12/23/18 22:59 Dose 1 ml .ROUTE .STK-MED ONE Magnesium Hydroxide 45 ml 12/23/18 22:41 12/23/18 23:03 Gi Cocktail 45 Ml (Maalox/Lidocaine) PO 12/23/18 22:42 45 ml STAT ONE Administration Lab/Rad Data: Laboratory Result Diagrams 12/23/18 23:05 12/23/18 23:05 Laboratory Results 12/23/18 12/23/18 12/23/18 Range/Units 23:05 23:05 23:05 WBC (4.0-10.5) K/mm3 RBC (4.1-5.4) M/mm3 Hgb (12.0-16.0) gm/dl Hct (35-47) % MCV (78-100) fl MCH (26-32) pg MCHC (32-36) g/dl RDW (11.5-14.0) % Plt Count (150-450) K/mm3 MPV (6-9.5) fl Gran % (36.0-66.0) % Eos # (Auto) (0-0.5) Absolute Lymphs (auto) (1.0-4.6) Absolute Monos (auto) (0.0-1.3) Lymphocytes % (24.0-44.0) % Monocytes % (0.0-12.0) % Eosinophils % (0.00-5.0) % Basophils % (0.0-0.4) % Absolute Granulocytes (1.4-6.9) Basophils # (0-0.4) D-Dimer 375 (215-500) ng/mL Sodium 140 (137-145) mmol/L Potassium 3.5 (3.5-5.1) mmol/L Chloride 104 (98-107) mmol/L Carbon Dioxide 26 (22-30) mmol/L Anion Gap 14.5 (5-15) MEQ/L BUN 19 H (7-17) mg/dL Creatinine 0.95 (0.52-1.04) mg/dL Estimated GFR > 60.0 ML/MIN Glucose 92 (74-106) mg/dL Calcium 10.0 (8.4-10.2) mg/dL Troponin I < 0.012 (0.000-0.034) ng/mL 12/23/18 Range/Units 23:05 WBC 5.2 (4.0-10.5) K/mm3 RBC 4.79 (4.1-5.4) M/mm3 Hgb 14.5 (12.0-16.0) gm/dl Hct 41.2 (35-47) % MCV 86.0 (78-100) fl MCH 30.3 (26-32) pg MCHC 35.2 (32-36) g/dl RDW 13.1 (11.5-14.0) % Plt Count 153 (150-450) K/mm3 MPV 9.6 H (6-9.5) fl Gran % 50.8 (36.0-66.0) % Eos # (Auto) 0.21 (0-0.5) Absolute Lymphs (auto) 1.87 (1.0-4.6) Absolute Monos (auto) 0.45 (0.0-1.3) Lymphocytes % 36.2 (24.0-44.0) % Monocytes % 8.7 (0.0-12.0) % Eosinophils % 4.1 (0.00-5.0) % Basophils % 0.2 (0.0-0.4) % Absolute Granulocytes 2.62 (1.4-6.9) Basophils # 0.01 (0-0.4) D-Dimer (215-500) ng/mL Sodium (137-145) mmol/L Potassium (3.5-5.1) mmol/L Chloride (98-107) mmol/L Carbon Dioxide (22-30) mmol/L Anion Gap (5-15) MEQ/L BUN (7-17) mg/dL Creatinine (0.52-1.04) mg/dL Estimated GFR ML/MIN Glucose (74-106) mg/dL Calcium (8.4-10.2) mg/dL Troponin I (0.000-0.034) ng/mL - Progress Progress: improved, re-examined Counseled pt/family regarding: lab results, diagnosis, need for follow-up - Departure Departure Disposition: Home Clinical Impression: Gastroesophageal reflux disease Condition: Stable Critical Care Time: No Referrals: INESSA DARBY [Primary Care Provider] - Additional Instructions: avoid fatty, greasy, spicy foods. sleep elevated with pillows or in a recliner. follow up with gi specialist. take your medications as prescribed.
[2018-12-23] MEDS ORDERED: XYLOCAINE HCl Viscous ONE (22:58)
[2018-12-23] MEDS ORDERED: MAALOX ES 30 ML UNIT DOSE ONE (22:58)
[2018-12-23] MEDS: GI COCKTAIL 45 ML (Maalox/Lidocaine) PO ONE (23:03)
[2018-12-23 23:12] LABS: BASOPHIL % 0.2 % (0.0-0.4); Basophil (Absolute #) 0.01 (0-0.4); Eosinophil % 4.1 % (0.00-5.0); Eosinophil (Absolute #) 0.21 (0-0.5); Granulocyte Absolute (ANC) 2.62 (1.4-6.9); Granulocytes % 50.8 % (36.0-66.0); Hematocrit 41.2 % (35-47); Hemoglobin 14.5 gm/dl (12.0-16.0); Lymphocyte (Absolute #) 1.87 (1.0-4.6); Lymphocytes % 36.2 % (24.0-44.0); Mean Corpuscular Hemoglobin 30.3 pg (26-32); Mean Corpuscular Hgb Concent. 35.2 g/dl (32-36); Mean Platelet Volume 9.6 fl (6-9.5); Monocyte (Absolute #) 0.45 (0.0-1.3); Monocytes % 8.7 % (0.0-12.0); Platelet Count 153 K/mm3 (150-450); Red Blood Count 4.79 M/mm3 (4.1-5.4); Red Cell Distribution Width 13.1 % (11.5-14.0); White Blood Count 5.2 K/mm3 (4.0-10.5)
[2018-12-23 23:36] LABS: ANION GAP 14.5 MEQ/L (5-15); BLOOD UREA NITROGEN 19 mg/dL (7-17); CHLORIDE 104 mmol/L (98-107); Carbon Dioxide 26 mmol/L (22-30); Creatinine 1 0.95 mg/dL (0.52-1.04); Glucose 92 mg/dL (74-106); Potassium 3.5 mmol/L (3.5-5.1); SODIUM 140 mmol/L (137-145)
[2018-12-24 00:17] VITALS: BP 137/89; PULSE 66; O2SAT 99
== END 2018-12-24 00:32 | disposition home or self-care (01) ==
LOC: ED 22:10
DX: K21.9 Gastro-esophageal reflux disease without esophagitis (principal); Z79.899 Other long term (current) drug therapy
CPT/HCPCS: 36415; 80048; 84484; 85025; 85379; 93005; 99284; A9270-GY

== ENCOUNTER 2019-03-19 13:54 | Emergency (ER) | payer OTHER ==
[2019-03-19] MEDS ORDERED: GI COCKTAIL 45 ML (Maalox/Lidocaine) PO ONE (14:41)
[2019-03-19] MEDS ORDERED: MAALOX ES 30 ML UNIT DOSE ONE (14:51)
[2019-03-19] MEDS ORDERED: XYLOCAINE HCl Viscous ONE (14:51)
--- NOTE | 2019-03-19 14:57 | ERPHSYRPT ---
- History of Present Illness Time Seen by Provider: 03/19/19 14:15 Source: patient, family Patient Subjective Stated Complaint: states is having acid reflux again today and meds are not helping. took prilosec and maalox today. states pain is sharp intermittent in jaws and throat. has had several workups and has not bee able to find out what is wrong. Triage Nursing Assessment: ambulated to room per self. skin w/d, color normal, resp easy. abd soft, nontender. normal bowel sounds. Physician History: 54 y/o white female presents with same chronic intermittent symptoms as 01/03. pt has sharp burning substernally up into throat. pt only on prilosec. pt has been evaluated by pcp and gi specialist for same sx. pt received gi cocktail in 01/03 and sx improved. sx onset with food intake. has seen an change control specialist and has eliminated several foods but sx persist. Timing/Duration: intermittent, other (chronic) Severity: mild Modifying Factors: Improves With: eating Associated Symptoms: chest pain, No nausea, No vomiting, No abdominal pain, No shortness of breath Allergies/Adverse Reactions: Corticosteroids (Glucocorticoids) Allergy (Intermediate, Verified 03/19/19 14:09 ) CHF PT REPORTS STEROIDS GAVE HER CHF. Androgenic Anabolic Steroid Allergy (Verified 03/19/19 14:09) egg Allergy (Verified 03/19/19 14:09) Home Medications: Fluticasone Propionate [Flonase NASAL] 16 gm NS DAILY 08/29/18 [History] Loratadine 10 mg [Claritin 10 mg] 10 mg PO DAILY 12/23/18 [History] Omeprazole 20 mg PO DAILY 03/19/19 [History] Pseudoephedrine HCl [Sudafed] 30 mg PO DAILY 03/19/19 [History] Hx Tetanus, Diphtheria Vaccination/Date Given: No Hx Influenza Vaccination/Date Given: No Hx Pneumococcal Vaccination/Date Given: No - Review of Systems Constitutional: No Symptoms Eyes: No Symptoms Ears, Nose, & Throat: No Symptoms Respiratory: No Symptoms Cardiac: Chest Pain Abdominal/Gastrointestinal: No Symptoms Genitourinary Symptoms: No Symptoms Musculoskeletal: No Symptoms Skin: No Symptoms Neurological: No Symptoms Psychological: No Symptoms Endocrine: No Symptoms Hematologic/Lymphatic: No Symptoms Immunological/Allergic: No Symptoms All Other Systems: Reviewed and Negative - Past Medical History Pertinent Past Medical History: Yes Neurological History: No Pertinent History ENT History: No Pertinent History Cardiac History: Hypertension Respiratory History: No Pertinent History Endocrine Medical History: No Pertinent History Musculoskeletal History: No Pertinent History GI Medical History: GERD History: No Pertinent History Psycho-Social History: No Pertinent History Female Reproductive Disorders: No Pertinent History Other Medical History: seasonal allergies - Past Surgical History Past Surgical History: Yes Neuro Surgical History: No Pertinent History Cardiac: No Pertinent History Respiratory: No Pertinent History Gastrointestinal: No Pertinent History Genitourinary: No Pertinent History Musculoskeletal: Orthopedic Surgery, Other Female Surgical History: No Pertinent History, Other Other Surgical History: bone spurs - Social History Smoking Status: Never smoker Exposure to second hand smoke: No Drug Use: none Patient Lives Alone: No - Female History Hx Now: No - Nursing Vital Signs Nursing Vital Signs: Initial Vital Signs Temperature 98.5 F 03/19/19 14:03 Pulse Rate 65 03/19/19 14:03 Respiratory Rate 16 03/19/19 14:03 Blood Pressure 155/98 03/19/19 14:03 O2 Sat by Pulse Oximetry 99 03/19/19 14:03 Pain Scale Pain Intensity 2 - Physical Exam General Appearance: no apparent distress, alert, anxiety Eye Exam: PERRL/EOMI, eyes nml inspection Ears, Nose, Throat Exam: normal ENT inspection, moist mucous membranes Neck Exam: normal inspection, non-tender, supple, full range of motion Respiratory Exam: normal breath sounds, chest tenderness, lungs clear, airway intact, No respiratory distress Cardiovascular Exam: regular rate/rhythm, normal heart sounds, normal peripheral pulses Gastrointestinal/Abdomen Exam: soft, normal bowel sounds, No tenderness Pelvic Exam: not done Rectal Exam: not done Back Exam: normal inspection, normal range of motion, No CVA tenderness, No vertebral tenderness Extremity Exam: normal inspection, normal range of motion, pelvis stable Neurologic Exam: alert, oriented x 3, cooperative, post commander II-XII nml as tested Skin Exam: normal color, warm, dry Lymphatic Exam: No adenopathy SpO2 Interpretation: normal SpO2: 99 O2 Delivery: Room Air - Course Nursing assessment & vital signs reviewed: Yes EKG Interpreted by Me: RATE (66), Sinus Rhythm, NORMAL AXIS, NORMAL QRS, Non- specific ST Changes, Other (no change from comparison ekg dated 12/23/18) Ordered Tests: Active Orders 24 hr Category Date Time Status EKG-ER Only STAT Care 03/19/19 14:41 Active IV Insertion STAT Care 03/19/19 14:41 Active AMYLASE Stat Lab 03/19/19 14:59 Completed CBC W DIFF Stat Lab 03/19/19 14:59 Completed CMP Stat Lab 03/19/19 14:59 Completed LIPASE Stat Lab 03/19/19 14:59 Completed TROPONIN Q3H Lab 03/19/19 14:59 Completed TROPONIN Q3H Lab 03/19/19 17:45 Ordered TROPONIN Q3H Lab 03/19/19 20:45 Ordered TROPONIN Q3H Lab 03/19/19 23:45 Ordered TROPONIN Q3H Lab 03/20/19 02:45 Ordered Medication Summary Discontinued Medications Generic Name Dose Route Start Last Admin Trade Name Freq PRN Reason Stop Dose Admin Al Hydrox/Mg Hydrox/Simethicone Confirm 03/19/19 14:51 Maalox Es 30 Ml Unit Dose Administered 03/19/19 14:52 Dose 30 ml .ROUTE .STK-MED ONE Lidocaine HCl Confirm 03/19/19 14:51 Xylocaine Hcl Viscous * Administered 03/19/19 14:52 Dose 15 ml .ROUTE .STK-MED ONE Magnesium Hydroxide 45 ml 03/19/19 14:41 03/19/19 14:53 Gi Cocktail 45 Ml (Maalox/Lidocaine) PO 03/19/19 14:42 45 ml STAT ONE Administration Lab/Rad Data: Laboratory Result Diagrams 03/19/19 14:59 03/19/19 14:59 Laboratory Results 03/19/19 03/19/19 03/19/19 Range/Units 14:59 14:59 14:59 WBC 6.0 (4.0-10.5) K/mm3 RBC 5.15 (4.1-5.4) M/mm3 Hgb 15.7 (12.0-16.0) gm/dl Hct 45.3 (35-47) % MCV 88.0 (78-100) fl MCH 30.5 (26-32) pg MCHC 34.7 (32-36) g/dl RDW 13.6 (11.5-14.0) % Plt Count 167 (150-450) K/mm3 MPV 9.5 (6-9.5) fl Gran % 64.4 (36.0-66.0) % Eos # (Auto) 0.19 (0-0.5) Absolute Lymphs (auto) 1.61 (1.0-4.6) Absolute Monos (auto) 0.33 (0.0-1.3) Lymphocytes % 26.7 (24.0-44.0) % Monocytes % 5.5 (0.0-12.0) % Eosinophils % 3.2 (0.00-5.0) % Basophils % 0.2 (0.0-0.4) % Absolute Granulocytes 3.89 (1.4-6.9) Basophils # 0.01 (0-0.4) Sodium 140 (137-145) mmol/L Potassium 3.6 (3.5-5.1) mmol/L Chloride 102 (98-107) mmol/L Carbon Dioxide 29 (22-30) mmol/L Anion Gap 12.3 (5-15) MEQ/L BUN 17 (7-17) mg/dL Creatinine 0.78 (0.52-1.04) mg/dL Estimated GFR > 60.0 ML/MIN Glucose 90 (74-106) mg/dL Calcium 9.4 (8.4-10.2) mg/dL Total Bilirubin 0.70 (0.2-1.3) mg/dL AST 36 (14-36) U/L ALT 53 H (0-35) U/L Alkaline Phosphatase 106 (38-126) U/L Troponin I < 0.012 (0.000-0.034) ng/mL Serum Total Protein 7.5 (6.3-8.2) g/dL Albumin 4.3 (3.5-5.0) g/dL Amylase 82 (30-110) U/L Lipase 134 (23-300) U/L - Progress Progress: unchanged Counseled pt/family regarding: lab results, diagnosis, need for follow-up - Departure Departure Disposition: Home Clinical Impression: Gastroesophageal reflux disease Condition: Stable Critical Care Time: No Referrals: INESSA PETERSON [Primary Care Provider] - Additional Instructions: Avoid fatty greasy spicy foods. follow up with dr. peterson to further evaluate gallbladder(ultrasound, HIDA scan) and pediatric associate for PH testing if indicated. Prescriptions: Sucralfate 1 gm [Carafate 1 GM] 1 g PO ACHS #40 tablet
[2019-03-19 15:03] LABS: BASOPHIL % 0.2 % (0.0-0.4); Basophil (Absolute #) 0.01 (0-0.4); Eosinophil % 3.2 % (0.00-5.0); Eosinophil (Absolute #) 0.19 (0-0.5); Granulocyte Absolute (ANC) 3.89 (1.4-6.9); Granulocytes % 64.4 % (36.0-66.0); Hematocrit 45.3 % (35-47); Hemoglobin 15.7 gm/dl (12.0-16.0); Lymphocyte (Absolute #) 1.61 (1.0-4.6); Lymphocytes % 26.7 % (24.0-44.0); Mean Corpuscular Hemoglobin 30.5 pg (26-32); Mean Corpuscular Hgb Concent. 34.7 g/dl (32-36); Mean Platelet Volume 9.5 fl (6-9.5); Monocyte (Absolute #) 0.33 (0.0-1.3); Monocytes % 5.5 % (0.0-12.0); Platelet Count 167 K/mm3 (150-450); Red Blood Count 5.15 M/mm3 (4.1-5.4); Red Cell Distribution Width 13.6 % (11.5-14.0)
[2019-03-19 15:15] LABS: ALBUMIN 4.3 g/dL (3.5-5.0); ALKALINE PHOSPHATASE 106 U/L (38-126); AMYLASE 82 U/L (30-110); ANION GAP 12.3 MEQ/L (5-15); BLOOD UREA NITROGEN 17 mg/dL (7-17); CHLORIDE 102 mmol/L (98-107); Calcium 9.4 mg/dL (8.4-10.2); Carbon Dioxide 29 mmol/L (22-30); Creatinine 1 0.78 mg/dL (0.52-1.04); Glucose 90 mg/dL (74-106); Potassium 3.6 mmol/L (3.5-5.1); SGOT/AST 36 U/L (14-36); SGPT/ALT 53 U/L (0-35); SODIUM 140 mmol/L (137-145); Total Protein 7.5 g/dL (6.3-8.2)
[2019-03-19 15:26] VITALS: BP 133/82
[2019-03-19 15:50] VITALS: PULSE 66; O2SAT 967
== END 2019-03-19 15:56 | disposition home or self-care (01) ==
LOC: ED 13:54
DX: K21.9 Gastro-esophageal reflux disease without esophagitis (principal); I10 Essential (primary) hypertension; Z79.899 Other long term (current) drug therapy; I50.9 Heart failure, unspecified
CPT/HCPCS: 36000; 36415; 80053; 82150; 83690; 84484; 85025; 93005; 99284; A9270-GY

== ENCOUNTER 2019-08-01 01:27 | Emergency (ER) | payer OTHER ==
[2019-08-01] MEDS ORDERED: MAALOX ES 30 ML UNIT DOSE PO ONE (01:55)
--- NOTE | 2019-08-01 02:01 | ERPHSYRPT ---
- History of Present Illness Time Seen by Provider: 08/01/19 01:45 Source: patient Exam Limitations: no limitations Patient Subjective Stated Complaint: pt states she woke up with acid reflux and stabbing pain in her throat. states when she has this pain she is not able to treat the reflux successfully at home Triage Nursing Assessment: pt alert and oriented, asnwers questions approp. pt ambulatory with steady gait noted. respirations nonlabored with lungs cta. abd soft and nontender to palpation. skin pink warm and dry. Physician History: Patient has been dealing with acid reflux issues for a year and a half and has a 95 pound weight loss due to not eating because of the swelling sensation and discomfort in her throat when she would eat. Patient had food allergy testing in the past, and she had 11 allergies come back positive, but she had no problem with the foods that she came back positive. Patient has had an EGD, small bowel follow through study, CT scan studies, Colonoscopy that have been negative for her acid reflux and weight loss issues with negative etiology to her symptoms from her specialists she has seen. Patient does take a daily omeprazole. Patient woke up with symptoms of her acid reflux in the back of her throat and had tried taking an antacid without any relief of her symptoms. She has had GI cocktails in the past which have helped her symptoms, but patient states she is out Maalox at home. Timing/Duration: abrupt onset Severity: moderate ENT Location: throat Prearrival Treatment: over the counter meds (took an antacid without any success ) Modifying Factors: Worsens With: lying down Associated Symptoms: No ear pain (R), No ear pain (L), No cough, No fever, No chills, No change in hearing, No dizziness, No drooling, No ear drainage, No facial pain/swelling, No headache, No hearing loss, No jaw pain, No malaise, No motion sickness, No nasal congestion/drainage, No epistaxis, No nasal foreign body, No neck pain, No poor fluid intake, No poor solids intake, No ringing of ears, No swollen glands, No sinus infection, No sore throat, No tooth pain, No difficulty swallowing, No voice change Allergies/Adverse Reactions: Corticosteroids (Glucocorticoids) Allergy (Intermediate, Verified 08/01/19 01:44 ) CHF PT REPORTS STEROIDS GAVE HER CHF. Androgenic Anabolic Steroid Allergy (Verified 08/01/19 01:44) egg Allergy (Verified 08/01/19 01:44) Home Medications: Fluticasone Propionate [Flonase NASAL] 16 gm NS DAILY 08/29/18 [History] Loratadine 10 mg [Claritin 10 mg] 10 mg PO DAILY 12/23/18 [History] Omeprazole 20 mg PO DAILY 03/19/19 [History] Hx Tetanus, Diphtheria Vaccination/Date Given: No Hx Influenza Vaccination/Date Given: No Hx Pneumococcal Vaccination/Date Given: No Immunizations Up to Date: No - Review of Systems Constitutional: No Fever, No Chills, No Fatigue Eyes: No Eye Pain, No Vision Changes Ears, Nose, & Throat: Throat Pain, No Nose Pain, No Nose Congestion, No Mouth Swelling, No Throat Swelling, No Painful Swallowing Respiratory: No Cough, No Dyspnea Cardiac: No Chest Pain, No Edema, No Syncope Abdominal/Gastrointestinal: No Abdominal Pain, No Nausea, No Vomiting, No Diarrhea, No Hematemesis, No Hematochezia, No Melena Genitourinary Symptoms: No Dysuria, No Flank Pain Musculoskeletal: No Back Pain, No Neck Pain, No Myalgias Skin: No Rash Neurological: No Dizziness, No Focal Weakness, No Sensory Changes Psychological: No Symptoms Endocrine: No Symptoms Hematologic/Lymphatic: No Easy Bleeding, No Easy Bruising All Other Systems: Reviewed and Negative - Past Medical History Pertinent Past Medical History: Yes Neurological History: No Pertinent History ENT History: No Pertinent History Cardiac History: Hypertension Respiratory History: No Pertinent History Endocrine Medical History: No Pertinent History Musculoskeletal History: No Pertinent History GI Medical History: GERD History: No Pertinent History Psycho-Social History: No Pertinent History Female Reproductive Disorders: No Pertinent History Other Medical History: seasonal allergies - Past Surgical History Past Surgical History: Yes Neuro Surgical History: No Pertinent History Cardiac: No Pertinent History Respiratory: No Pertinent History Gastrointestinal: No Pertinent History Genitourinary: No Pertinent History Musculoskeletal: Orthopedic Surgery, Other Female Surgical History: No Pertinent History, Other Other Surgical History: bone spurs - Social History Smoking Status: Never smoker Exposure to second hand smoke: No Drug Use: none Patient Lives Alone: No - Female History Hx Last Menstrual Period: post Hx Now: No - Nursing Vital Signs Nursing Vital Signs: Initial Vital Signs Temperature 97.4 F 08/01/19 01:37 Pulse Rate 62 08/01/19 01:37 Respiratory Rate 16 08/01/19 01:37 Blood Pressure 156/93 08/01/19 01:37 O2 Sat by Pulse Oximetry 99 08/01/19 01:37 Pain Scale Pain Intensity 4 - Physical Exam General Appearance: no apparent distress, alert Eye Exam: bilateral eye: normal inspection, PERRL, EOMI Ear Exam: bilateral ear: auricle normal, canal normal, TM normal Nasal Exam: normal inspection, No active bleeding, No discharge, No dried blood , No foreign body, No sinus tenderness Throat Exam: normal, pharynx normal, moist mucus membranes, No excessive drooling, No mandibular swelling, No pharynx swelling, No pharynx tenderness, No tongue swollen, No tonsillar exudate, No tonsillar swelling, No trismus, No uvula swelling Neck Exam: normal inspection, non-tender, supple, full range of motion, trachea midline, No JVD, No lymphadenopathy (R), No lymphadenopathy (L) Cardiovascular/Respiratory Exam: chest non-tender, normal breath sounds, regular rate/rhythm, heart sounds normal, no JVD, no M/R/G, no respiratory distress Abdominal Exam: non-tender, soft Neurologic Exam: alert, oriented x 3, cooperative, 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 tested, normal mood/affect, sensation nml, No motor deficits Skin Exam: normal color, warm, dry, No petechiae, No jaundice, No cyanosis SpO2 Interpretation: normal SpO2: 99 O2 Delivery: Room Air - Course Nursing assessment & vital signs reviewed: Yes Ordered Tests: Medication Summary Discontinued Medications Generic Name Dose Route Start Last Admin Trade Name Espinozaq PRN Reason Stop Dose Admin Al Hydrox/Mg Hydrox/Simethicone 30 ml 08/01/19 01:55 08/01/19 02:16 Maalox Es 30 Ml Unit Dose PO 08/01/19 01:56 30 ml STAT ONE Administration Al Hydrox/Mg Hydrox/Simethicone Confirm 08/01/19 02:06 Maalox Es 30 Ml Unit Dose Administered 08/01/19 02:07 Dose 30 ml .ROUTE .STK-MED ONE Sucralfate 1,000 mg 08/01/19 02:47 08/01/19 03:00 Carafate Suspension 1000 Mg/10 Ml PO 08/01/19 02:48 1,000 mg STAT ONE Administration - Progress Progress: improved Progress Note: 08/01/19 02:47 Patient feels better after Maalox, but still has some discomfort in her posterior pharynx. Patient declined earlier and now a rapid strep test due to having no sick contacts and having similar symptoms from her reflux such as the ones she is having now. Patient will be given Carafate suspension 1000mg PO times one since it has been over 30 minutes since taking Maalox. 08/01/19 03:37 Patient's symptoms have completely resolved after Carafate. Patient declines any further testing or treatment. She would like Carafate sent to her pharmacy. Counseled pt/family regarding: diagnosis, need for follow-up - Departure Departure Disposition: Home Clinical Impression: Throat discomfort, Essential hypertension Gastroesophageal reflux disease Qualifiers: Esophagitis presence: with esophagitis Qualified Code(s): K21.0 - Gastro- esophageal reflux disease with esophagitis Condition: Good Critical Care Time: No Referrals: INESSA DARBY [Primary Care Provider] - 08/01/19 Instructions: High Blood Pressure (DC), Sore Throat, Adult (DC), Acid Reflux ( Gastroesophageal Reflux Disease) in Adults Additional Instructions: Discharge/Care Plan ROGELIO PALOMOPRATIK was seen on 08/01/19 in the Emergency Room. The patient was counseled regarding Diagnosis need for follow up and when to return to the Emergency Room. Return immediately back to the emergency department if any worsening throat pain, new fever, any chest pain, any shortness of breath, no abdominal pain, new back pain, new vomiting or coughing up blood, or any other concerning signs or symptoms that were not present at today's emergency department visit for immediate reevaluation in the emergency department. Prescriptions given: Carafate 1000mg QID prn Discharge Note I have spoken with the patient and family. I have explained the patient's condition, diagnosis and treatment plan based on the information available to me at this time. I have answered the patient's and family's questions and addressed any concerns. The patient and family have as good understanding of the patient's diagnosis, condition and treatment plan as can be expected at this point. The vital signs have been stable. The patient's condition is stable and appropriate for discharge from the emergency department. The patient will pursue further outpatient evaluation with the primary care physician or other designated or consulting physician as outlined in the discharge instructions. The patient and family have received these instruction. The patient and family are aware that any significant change in condition or worsening of symptoms should prompt an immediate return to this or the closest emergency department or call 911. Prescriptions: Sucralfate 1000 mg/10 ml [Carafate SUSPENSION 1000 MG/10 ML] 1 gm PO Q6H PRN PRN #280 ml PRN Reason: Pain
[2019-08-01] MEDS ORDERED: MAALOX ES 30 ML UNIT DOSE ONE (02:06)
[2019-08-01] MEDS ORDERED: Carafate SUSPENSION 1000 MG/10 ML PO ONE (02:47)
[2019-08-01 02:49] VITALS: PULSE 67
[2019-08-01 02:51] VITALS: O2SAT 99
[2019-08-01 03:43] VITALS: BP 138/89
== END 2019-08-01 03:49 | disposition home or self-care (01) ==
LOC: ED 01:27
DX: R07.0 Pain in throat (principal); I10 Essential (primary) hypertension; K21.0 Gastro-esophageal reflux disease with esophagitis
CPT/HCPCS: 99283; A9270-GY

== ENCOUNTER 2023-02-02 16:18 | Emergency (ER) | payer OTHER ==
--- NOTE | 2023-02-02 16:26 | ERPHSYRPT ---
- History of Present Illness Time Seen by Provider: 02/02/23 16:26 Historian: patient Exam Limitations: no limitations Physician History: This patient is a 58-year-old overweight white female who presents with heartburn symptoms. She has had this issue several times. She has been diagnosed with significant food allergies and couple days ago this patient ate apples. She is now having heartburn symptoms. She does not have chest pain. She is not short of breath. She just wants to be sure there is no abnormalities on the heart enzyme level and twelve-lead EKG. In addition, she states the GI cocktail helped her symptoms tremendously. Patient last saw her gastr oenterologist approximately 1 year ago. Timing/Duration: day(s) (Last couple of days) Activities at Onset: none Quality: burning (Heartburn) Abdominal Pain Onset Location: epigastric (Into chest midline substernal) Pain Radiation: other (Substernal chest burning) Severity of Pain-Max: mild Severity of Pain-Current: mild Modifying Factors: Improves With: nothing Associated Symptoms: denies symptoms Previous symptoms: same symptoms as today Allergies/Adverse Reactions: Corticosteroids (Glucocorticoids) Allergy (Intermediate, Verified 08/01/19 01:44) CHF PT REPORTS STEROIDS GAVE HER CHF. Androgenic Anabolic Steroid Allergy (Verified 02/02/23 16:41) egg Allergy (Verified 08/01/19 01:44) Home Medications: Fluticasone Propionate [Flonase NASAL] 16 gm NS DAILY 08/29/18 [History] Loratadine 10 mg [Claritin 10 mg] 10 mg PO DAILY 12/23/18 [History] Omeprazole 20 mg PO DAILY 03/19/19 [History] Hx Tetanus, Diphtheria Vaccination/Date Given: No Hx Influenza Vaccination/Date Given: No Hx Pneumococcal Vaccination/Date Given: No Travel Risk - International Travel Have you traveled outside of the country in past 3 weeks: No - Coronavirus Screening Are you exhibiting any of the following symptoms?: No Close contact with a COVID-19 positive Pt in past 14-21 Days: No - Review of Systems Constitutional: No Symptoms Eyes: No Symptoms Ears, Nose, & Throat: No Symptoms Respiratory: No Symptoms Cardiac: Other (Heartburn) Abdominal/Gastrointestinal: No Symptoms Genitourinary Symptoms: No Symptoms Musculoskeletal: No Symptoms Skin: No Symptoms Neurological: No Symptoms Psychological: No Symptoms Endocrine: No Symptoms Hematologic/Lymphatic: No Symptoms Immunological/Allergic: No Symptoms All Other Systems: Reviewed and Negative - Past Medical History Pertinent Past Medical History: Yes Neurological History: No Pertinent History ENT History: No Pertinent History Cardiac History: Hypertension Respiratory History: No Pertinent History Endocrine Medical History: No Pertinent History Musculoskeletal History: No Pertinent History GI Medical History: GERD History: No Pertinent History Psycho-Social History: No Pertinent History Female Reproductive Disorders: No Pertinent History Other Medical History: seasonal allergies - Past Surgical History Past Surgical History: Yes Neuro Surgical History: No Pertinent History Cardiac: No Pertinent History Respiratory: No Pertinent History Gastrointestinal: No Pertinent History Genitourinary: No Pertinent History Musculoskeletal: Orthopedic Surgery, Other Female Surgical History: No Pertinent History, Other Other Surgical History: bone spurs - Social History Smoking Status: Never smoker Exposure to second hand smoke: No Drug Use: none Patient Lives Alone: No - Nursing Vital Signs Nursing Vital Signs: Initial Vital Signs Temperature 98.2 F 02/02/23 16:35 Pulse Rate 75 02/02/23 16:35 Respiratory Rate 17 02/02/23 16:35 Blood Pressure 153/97 02/02/23 16:35 O2 Sat by Pulse Oximetry 98 02/02/23 16:35 Pain Scale Pain Intensity 8 - Physical Exam General Appearance: no apparent distress, alert Eye Exam: PERRL/EOMI, eyes nml inspection Ears, Nose, Throat Exam: normal ENT inspection, moist mucous membranes Neck Exam: normal inspection, non-tender, supple, full range of motion Respiratory Exam: normal breath sounds, chest tenderness, lungs clear (Described as heartburn), airway intact, No respiratory distress Cardiovascular Exam: regular rate/rhythm, normal heart sounds, normal peripheral pulses Gastrointestinal/Abdomen Exam: soft, normal bowel sounds, No tenderness Pelvic Exam: not done Rectal Exam: not done Back Exam: normal inspection, normal range of motion, No CVA tenderness, No vertebral tenderness Extremity Exam: normal inspection, normal range of motion, pelvis stable Neurologic Exam: alert, oriented x 3, cooperative, excellence manager II-XII nml as tested, normal mood/affect, nml cerebellar function, nml station & gait, sensation nml Skin Exam: normal color, warm, dry Lymphatic Exam: No adenopathy SpO2 Interpretation: normal O2 Delivery: Room Air - Course Nursing assessment & vital signs reviewed: Yes EKG Interpreted by Me: RATE (72), Sinus Rhythm, NORMAL AXIS, NORMAL INTERVALS, NORMAL QRS, NORMAL ST-T, Other (No acute ischemic changes on today's twelve-lead EKG.) Ordered Tests: Active Orders 24 hr Category Date Time Status EKG-ER Only STAT Care 02/02/23 16:56 Active TROPONIN Q4H Lab 02/02/23 17:30 Completed TROPONIN Q4H Lab 02/02/23 21:00 Ordered TROPONIN Q4H Lab 02/03/23 01:00 Ordered Medication Summary Discontinued Medications Generic Name Dose Route Start Last Admin Trade Name Freq PRN Reason Stop Dose Admin Al Hydrox/Mg Hydrox/Simethicone Confirm 02/02/23 17:07 Mag Hydrox/Al Hydrox/Simeth 30 Ml Udcup Administered 02/02/23 17:08 Dose 30 ml .ROUTE .STK-MED ONE Lidocaine HCl Confirm 02/02/23 17:07 Lidocaine Hcl 2% Viscous 15 Ml Udcup Administered 02/02/23 17:08 Dose 15 ml .ROUTE .STK-MED ONE Magnesium Hydroxide 45 ml 02/02/23 16:57 02/02/23 17:07 Mag Hydrx/Alum Hyd/Simeth/Lido 45 Ml Bottle PO 02/02/23 16:58 45 ml STAT ONE Administration Lab/Rad Data: Laboratory Results 02/02/23 Range/Units 17:30 Troponin I < 0.012 (0.000-0.034) ng/mL - Progress Progress: improved Progress Note: 02/02/23 18:05 This patient's medical issue is 1 of low complexity. The level of complexity and the work-up performed was based on review of the patient's past medical history and review of the patient's medication list, drug allergy list and history of present illness as well as physical exam findings. This patient has recurrent symptoms. She just wanted to be sure that there was no changes that are acute on the EKG and her troponin. She also wanted to receive a GI cocktail which seems to help her recurrent symptoms. She will follow-up with her primary care physician and her ibm bpm developer on 02/05/2023 to make arrangements for further evaluation management. Patient was told to return to the emergency department if symptoms worsen. She is to continue take her medicine as prescribed. Counseled pt/family regarding: lab results, diagnosis, need for follow-up Medical Desision Making - Independent Historian Additional History obtained from: Spouse - Risk of complications Minimal Risk: Minimal risk of morbidity - Departure Departure Disposition: Home Clinical Impression: Gastroesophageal reflux disease Condition: Stable Critical Care Time: No Referrals: INESSA DARBY [Primary Care Provider] - Follow up/PCP as directed Additional Instructions: Avoid all your food allergies. Avoid fatty greasy spicy foods. Take your medication as prescribed. Call your primary care provider for further evaluation management on 02/05/2023. Return to the emergency department if symptoms worsen.
[2023-02-02] MEDS ORDERED: GI COCKTAIL 45 ML (Maalox/Lidocaine) PO ONE (16:57)
[2023-02-02] MEDS ORDERED: MAALOX ES 30 ML UNIT DOSE ONE (17:07)
[2023-02-02] MEDS ORDERED: XYLOCAINE VISCOUS 2% 15 ML CUP ONE (17:07)
[2023-02-02 18:06] VITALS: BP 134/93; PULSE 69; O2SAT 98
== END 2023-02-02 18:22 | disposition home or self-care (01) ==
LOC: ED 16:18
DX: K21.9 Gastro-esophageal reflux disease without esophagitis (principal); I10 Essential (primary) hypertension; Z79.899 Other long term (current) drug therapy
CPT/HCPCS: 36415; 84484; 93005; 99283; A9270-GY

== ENCOUNTER 2024-06-06 16:16 | Observation (INO) | payer OTHER ==
--- NOTE | 2024-06-06 16:59 | ERPHSYRPT ---
- History of Present Illness Time Seen by Provider: 06/06/24 16:47 Historian: patient Exam Limitations: no limitations Patient Subjective Stated Complaint: chest pain Triage Nursing Assessment: Pt brought to the ER by her , hypertensive, describes pain as pressure, pulses normal, skin n/w/d, pressure to medial chest that radiates to the back and began at approx 0500, no cardiac hx, doesn't appear to be in any distress Physician History: For about the past 12 hours pt has had dyspnea and constant mid anterior chest pressure and intermittent dull chest pain radiating to the back with episodes lasting about 1 second with severity of 4/10. Pt denies abdominal pain, vomiting, fever; admits to nausea for the past 12 hours. Aspirin Treatment Today: 81 mg x 4, provided by ED Allergies/Adverse Reactions: Corticosteroids (Glucocorticoids) Allergy (Intermediate, Verified 06/06/24 16:29) CHF PT REPORTS STEROIDS GAVE HER CHF. Androgenic Anabolic Steroid Allergy (Verified 06/06/24 16:29) chocolate Allergy (Verified 06/06/24 16:29) egg Allergy (Verified 06/06/24 16:29) gluten Allergy (Verified 06/06/24 16:29) lactase [From Dairy Aid] Allergy (Verified 06/06/24 16:29) oats Allergy (Verified 06/06/24 16:29) onion Allergy (Verified 06/06/24 16:29) wheat Allergy (Verified 06/06/24 16:29) Home Medications: Fluticasone Propionate [Flonase NASAL] 16 gm NS DAILY 08/29/18 [History] Loratadine 10 mg [Claritin 10 mg] 10 mg PO DAILY 12/23/18 [History] Omeprazole 20 mg PO DAILY 03/19/19 [History] Hx Tetanus, Diphtheria Vaccination/Date Given: No Hx Influenza Vaccination/Date Given: No Hx Pneumococcal Vaccination/Date Given: No Travel Risk - International Travel Have you traveled outside of the country in past 3 weeks: No - Emerging Infectious Disease Are you exhibiting symptoms associated with any current EIDs: No - Review of Systems Constitutional: No Fever Respiratory: Dyspnea Cardiac: Chest Pain Abdominal/Gastrointestinal: Nausea, No Abdominal Pain, No Vomiting Neurological: No Headache - Past Medical History Pertinent Past Medical History: Yes Neurological History: No Pertinent History ENT History: No Pertinent History Cardiac History: Hypertension Respiratory History: No Pertinent History Endocrine Medical History: No Pertinent History Musculoskeletal History: No Pertinent History GI Medical History: GERD History: No Pertinent History Psycho-Social History: No Pertinent History Female Reproductive Disorders: No Pertinent History Other Medical History: seasonal allergies - Past Surgical History Past Surgical History: Yes Neuro Surgical History: No Pertinent History Cardiac: No Pertinent History Respiratory: No Pertinent History Gastrointestinal: No Pertinent History Genitourinary: No Pertinent History Musculoskeletal: Orthopedic Surgery, Other Female Surgical History: No Pertinent History, Other Other Surgical History: bone spurs - Social History Smoking Status: Never smoker Exposure to second hand smoke: No Drug Use: none Patient Lives Alone: No - Social Determinants of Health Will the patient participate in the screening: Yes Do you worry about a steady place to live?: No Do you have any problems with any of the following?: No known problems In the past 12 months,have you had to go without utilities?: No Transportation Issues: No Has anyone in your support network made you feel unsafe?: No Have you or anyone in your house had to go without enough: No - Nursing Vital Signs Nursing Vital Signs: Initial Vital Signs Temperature 98.3 F 06/06/24 16:23 Pulse Rate 93 H 06/06/24 16:23 Respiratory Rate 15 06/06/24 16:23 Blood Pressure 160/90 06/06/24 16:23 O2 Sat by Pulse Oximetry 99 06/06/24 16:23 Pain Scale Pain Intensity 5 - Physical Exam General Appearance: alert Eye Exam: PERRL/EOMI Ears, Nose, Throat Exam: TMs normal, pharyngeal erythema (minimal) Neck Exam: normal inspection Respiratory Exam: lungs clear Cardiovascular Exam: normal heart sounds Gastrointestinal/Abdomen Exam: normal bowel sounds Back Exam: normal inspection Extremity Exam: No pedal edema Neurologic Exam: alert, cooperative Skin Exam: warm, dry SpO2 Interpretation: normal SpO2: 99 O2 Delivery: Room Air - Course Nursing assessment & vital signs reviewed: Yes EKG Interpreted by Me: RATE (85), Sinus Rhythm, NORMAL AXIS, Other (QTc = 453; ST segment depressions in I, II, aVF, V3-V6) - CT Exams Chest CT Interpretation: Discussed w/radiologist (Compared to 09/21/22. Negative for PE. No new/acute findings.) Ordered Tests: Active Orders 24 hr Category Date Time Status EKG-ER Only STAT Care 06/06/24 17:03 Active IV Insertion STAT Care 06/06/24 17:03 Active CHEST WITH CONTRAST [CT] Stat Exams 06/06/24 17:06 Completed AMYLASE Stat Lab 06/06/24 17:20 Completed CBC W DIFF Stat Lab 06/06/24 17:20 Completed CMP Stat Lab 06/06/24 17:20 Completed LIPASE Stat Lab 06/06/24 17:20 Completed MAGNESIUM Stat Lab 06/06/24 17:20 Completed TROPONIN Q4H Lab 06/06/24 17:20 Completed TROPONIN Q4H Lab 06/06/24 21:15 Completed TROPONIN Q4H Lab 06/07/24 01:15 Ordered TROPONIN Q4H Lab 06/07/24 01:15 Ordered TROPONIN Q4H Lab 06/07/24 05:15 Ordered UA W/RFX UR CULTURE Stat Lab 06/06/24 17:44 Completed Medication Summary Generic Name Dose Route Start Last Admin Trade Name Freq PRN Reason Stop Dose Admin Sodium Chloride 1,000 mls @ 100 mls/hr 06/06/24 17:15 06/06/24 17:27 Sodium Chloride 0.9% 1000 Ml IV 07/06/24 17:14 100 mls/hr .Q10H YULIET Administration Discontinued Medications Generic Name Dose Route Start Last Admin Trade Name Freq PRN Reason Stop Dose Admin Nitroglycerin 0.4 mg 06/06/24 17:04 06/06/24 17:44 Nitroglycerin 0.4 Mg (Ed) 0.4 Mg Tab.Subl SL 06/06/24 17:05 Not Given STAT ONE Nitroglycerin Confirm 06/06/24 17:24 Nitroglycerin 0.4 Mg (Ed) 0.4 Mg Tab.Subl Administered 06/06/24 17:25 Dose 0.4 mg SL .STK-MED ONE Lab/Rad Data: Laboratory Result Diagrams 06/06/24 17:20 06/06/24 17:20 Laboratory Results 06/06/24 06/06/24 06/06/24 Range/Units 21:15 17:44 17:20 WBC (3.98-10.04) x10^3/uL RBC (3.93-5.22) x10^6/uL Hgb (11.2-15.7) g/dL Hct (34.1-44.9) % MCV (79.4-94.8) fL MCH (25.6-32.2) pg MCHC (32.2-35.5) g/dL RDW (11.7-14.4) % Plt Count (182-369) x10^3/uL MPV (9.4-12.3) fL Gran % (34.0-71.1) % Immature Gran % (Auto) (0.001-0.429) % Nucleat RBC Rel Count (0.00-0.2) % Eos # (Auto) (0.04-0.36) x10^3/uL Immature Gran # (Auto) (0.001-0.031) x10^3u/L Absolute Lymphs (auto) (1.18-3.74) x10^3/uL Absolute Monos (auto) (0.24-0.86) x10^3/uL Absolute Nucleated RBC (0.00-0.012) x10^3u/L Lymphocytes % (19.3-51.7) % Monocytes % (4.7-12.5) % Eosinophils % (0.7-5.8) % Basophils % (0.1-1.2) % Absolute Granulocytes (1.56-6.13) x10^3/uL Basophils # (0.01-0.08) x10^3/uL Sodium (135-145) mmol/L Potassium (3.5-5.1) mmol/L Chloride (98-107) mmol/L Carbon Dioxide (22-30) mmol/L Anion Gap (5-15) MEQ/L BUN (7-17) mg/dL Creatinine (0.52-1.04) mg/dL Estimated GFR ML/MIN Glucose (74-106) mg/dL Calcium (8.4-10.2) mg/dL Magnesium (1.6-2.3) mg/dL Total Bilirubin (0.2-1.3) mg/dL AST (14-36) U/L ALT (0-35) U/L Alkaline Phosphatase (38-126) U/L Troponin I < 0.012 < 0.012 (0.000-0.033) ng/mL Serum Total Protein (6.3-8.2) g/dL Albumin (3.5-5.0) g/dL Amylase (30-110) U/L Lipase (23-300) U/L Urine Color Yellow (Yellow) Urine Appearance Cloudy A (Clear) Urine pH 8.5 A (4.6-8.0) Ur Specific [place] 1.020 (1.005-1.030) Urine Protein Negative (Negative) Urine Glucose (UA) Negative (Negative) mg/dL Urine Ketones Negative (Negative) Urine Blood Negative (Negative) Urine Nitrite Negative (Negative) Urine Bilirubin Negative (Negative) Urine Urobilinogen 1.0 A (0.2) mg/dL Ur Leukocyte Esterase Trace A (Negative) U Hyaline Cast (Auto) NONE SEEN (0-2) /LPF Urine Microscopic RBC 0-2 (0-5) /HPF Urine Microscopic WBC 0-2 (0-5) /HPF Ur Epithelial Cells None Seen (None Seen) /HPF Urine Bacteria None Seen (None Seen) /HPF Urine Culture Reflexed NO (NO) 06/06/24 06/06/24 Range/Units 17:20 17:20 WBC 3.9 L (3.98-10.04) x10^3/uL RBC 4.71 (3.93-5.22) x10^6/uL Hgb 14.0 (11.2-15.7) g/dL Hct 41.1 (34.1-44.9) % MCV 87.3 (79.4-94.8) fL MCH 29.7 (25.6-32.2) pg MCHC 34.1 (32.2-35.5) g/dL RDW 12.9 (11.7-14.4) % Plt Count 168 L (182-369) x10^3/uL MPV 9.6 (9.4-12.3) fL Gran % 63.7 (34.0-71.1) % Immature Gran % (Auto) 0.3 (0.001-0.429) % Nucleat RBC Rel Count 0.0 (0.00-0.2) % Eos # (Auto) 0.06 (0.04-0.36) x10^3/uL Immature Gran # (Auto) 0.01 (0.001-0.031) x10^3u/L Absolute Lymphs (auto) 1.04 L (1.18-3.74) x10^3/uL Absolute Monos (auto) 0.29 (0.24-0.86) x10^3/uL Absolute Nucleated RBC 0.00 (0.00-0.012) x10^3u/L Lymphocytes % 26.7 (19.3-51.7) % Monocytes % 7.5 (4.7-12.5) % Eosinophils % 1.5 (0.7-5.8) % Basophils % 0.3 (0.1-1.2) % Absolute Granulocytes 2.48 (1.56-6.13) x10^3/uL Basophils # 0.01 (0.01-0.08) x10^3/uL Sodium 138 (135-145) mmol/L Potassium 3.8 (3.5-5.1) mmol/L Chloride 102 (98-107) mmol/L Carbon Dioxide 29 (22-30) mmol/L Anion Gap 11.2 (5-15) MEQ/L BUN 20 H (7-17) mg/dL Creatinine 1.23 H (0.52-1.04) mg/dL Estimated GFR 50.3 ML/MIN Glucose 131 H (74-106) mg/dL Calcium 9.4 (8.4-10.2) mg/dL Magnesium 2.1 (1.6-2.3) mg/dL Total Bilirubin 0.80 (0.2-1.3) mg/dL AST 33 (14-36) U/L ALT 29 (0-35) U/L Alkaline Phosphatase 91 (38-126) U/L Troponin I (0.000-0.033) ng/mL Serum Total Protein 7.3 (6.3-8.2) g/dL Albumin 4.4 (3.5-5.0) g/dL Amylase 74 (30-110) U/L Lipase 203 (23-300) U/L Urine Color (Yellow) Urine Appearance (Clear) Urine pH (4.6-8.0) Ur Specific [place] (1.005-1.030) Urine Protein (Negative) Urine Glucose (UA) (Negative) mg/dL Urine Ketones (Negative) Urine Blood (Negative) Urine Nitrite (Negative) Urine Bilirubin (Negative) Urine Urobilinogen (0.2) mg/dL Ur Leukocyte Esterase (Negative) U Hyaline Cast (Auto) (0-2) /LPF Urine Microscopic RBC (0-5) /HPF Urine Microscopic WBC (0-5) /HPF Ur Epithelial Cells (None Seen) /HPF Urine Bacteria (None Seen) /HPF Urine Culture Reflexed (NO) - Progress Progress: improved Discussed with Dr.: Rg (Spoke with & discussed pt with Dr. Rodrigez - obs) Counseled pt/family regarding: lab results, diagnosis, rad results Medical Desision Making - Diagnostic Testing Diagnostic test were ordered, analyzed, and reviewed by me: Yes Radiological Interpretation: Discussed w/ radiologist - Departure Departure Disposition: Observation Clinical Impression: Chest pain, Dyspnea Condition: Stable Critical Care Time: No Referrals: INESSA DARBY [Primary Care Provider] - Follow up/PCP as directed
[2024-06-06 17:24] LABS: Absolute Neutrophil Ct (ANC) 2.48 x10^3/uL (1.56-6.13); BASOPHIL % 0.3 % (0.1-1.2); Basophil (Absolute #) 0.01 x10^3/uL (0.01-0.08); Eosinophil % 1.5 % (0.7-5.8); Eosinophil (Absolute #) 0.06 x10^3/uL (0.04-0.36); Hematocrit 41.1 % (34.1-44.9); IMMATURE GRAN # 0.01 x10^3u/L (0.001-0.031); IMMATURE GRAN % 0.3 % (0.001-0.429); Lymphocyte (Absolute #) 1.04 x10^3/uL (1.18-3.74); Lymphocytes % 26.7 % (19.3-51.7); Mean Cell Volume 87.3 fL (79.4-94.8); Mean Corpuscular Hemoglobin 29.7 pg (25.6-32.2); Mean Corpuscular Hgb Concent. 34.1 g/dL (32.2-35.5); Mean Platelet Volume 9.6 fL (9.4-12.3); Monocyte (Absolute #) 0.29 x10^3/uL (0.24-0.86); Monocytes % 7.5 % (4.7-12.5); Neutrophil % 63.7 % (34.0-71.1); Platelet Count 168 x10^3/uL (182-369); Red Blood Count 4.71 x10^6/uL (3.93-5.22); Red Cell Distribution Width 12.9 % (11.7-14.4); White Blood Count 3.9 x10^3/uL (3.98-10.04)
[2024-06-06] MEDS ORDERED: Sodium Chloride 0.9% 1000 ML 1,000 ML ONE (17:24)
[2024-06-06] MEDS ORDERED: Nitrostat 0.4 MG (ED) SL ONE (17:24)
[2024-06-06] MEDS: Sodium Chloride 0.9% 1000 ML 1,000 ML IV SCH (17:27)
[2024-06-06] MEDS: Nitrostat 0.4 MG (ED) SL ONE (17:27)
[2024-06-06 17:40] LABS: ALBUMIN 4.4 g/dL (3.5-5.0); ANION GAP 11.2 MEQ/L (5-15); BILIRUBIN,TOTAL 0.8 mg/dL (0.2-1.3); Calcium 9.4 mg/dL (8.4-10.2); Creatinine 1 1.23 mg/dL (0.52-1.04); EST GLOMERULAR FILTRATION RATE 50.3 ML/MIN; MAGNESIUM 2.1 mg/dL (1.6-2.3); Potassium 3.8 mmol/L (3.5-5.1); Total Protein 7.3 g/dL (6.3-8.2)
[2024-06-06 18:24] LABS: Bacteria None Seen /HPF (None Seen); Epithelial Cells None Seen /HPF (None Seen); Hyaline Casts NONE SEEN /LPF (0-2); RBC 0-2 /HPF (0-5); WBC 0-2 /HPF (0-5)
[2024-06-06 18:26] LABS: Appearance Cloudy (Clear); Bilirubin Negative (Negative); Blood Negative (Negative); Glucose, Urine Negative (Negative); Ketones Negative (Negative); Leukocyte Esterase Trace (Negative); Nitrite Negative (Negative); Ph 8.5 (4.6-8.0); Protein,Urine Dip Negative (Negative)
[2024-06-06 18:27] LABS: ADD URINE CULTURE? NO (NO)
--- NOTE | 2024-06-06 21:14 | XRAY ---
Indication: Chest pain radiating to back. Multiple contiguous axial images obtained through the chest using 80 cc Isovue 370 contrast and PE protocol. Comparison: September 21, 2022 Good opacification pulmonary arteries including lobar and segmental branches. No pulmonary embolus. Heart not enlarged. Aorta again minimally interscrotal without aneurysm/dissection. Stable tiny subcarinal and small left hilar calcified nodes. No pathologic mediastinal/hilar lymphadenopathy. Lungs demonstrates stable tiny inferior right upper lobe noncalcified and tiny left lower lobe calcified granulomas. No new pulmonary mass/nodule, infiltrate, or effusion. Bony thorax intact again with mild degenerative changes throughout the spine. Limited upper abdomen again demonstrates fatty liver. Impression: 1. Negative pulmonary embolus. No new/acute cardiopulmonary abnormalities. 2. Again chronic findings including degenerative spondylosis, fatty liver, and old granulomatous disease.
[2024-06-06] MEDS ORDERED: BABY ASPIRIN 81 MG CHEW ONE (22:01)
[2024-06-06] MEDS: BABY ASPIRIN 81 MG CHEW PO ONE (22:02)
[2024-06-06] MEDS ORDERED: Nitrostat 0.4 MG Tablet SL PRN (22:21)
[2024-06-06] MEDS ORDERED: Sodium Chloride 0.9% 1000 ML 1,000 ML IV SCH (22:21)
--- NOTE | 2024-06-07 01:49 | PCM.HP ---
History of Present Illness - Chief Complaint Chief Complaint: Chest pain; Dyspnea Date: 06/07/24 History of Present Illness: Ms. Melo is a 59 year-old female with no past medical history who presents with chest pain. She admits to 12 hours of ongoing chest pain - pressure; radiating to back; associated nausea and shortness of breath. Upon arrival to [place], laboratory data and imaging (CTA chest) was unremarkable. On my examination, she is chest pain free denying any current fevers, chills, nausea, vomiting, diarrhea, syncope, presyncope, visual changes, orthopnea, PND, odynophagia, dysphagia, chest pain, shortness of breath, belly pain, dysuria, hematuria, melena, hematochezia, or neurological changes. All other systems were reviewed and were negative. - Review of Systems Constitutional: Other ( PER HPI) Medications & Allergies Home Medications: Home Medication List Fluticasone Propionate [Flonase NASAL] 16 gm NS DAILY 08/29/18 [History Confirmed 06/06/24] Loratadine 10 mg [Claritin 10 mg] 10 mg PO DAILY 12/23/18 [History Confirmed 06/06/24] Omeprazole 20 mg PO DAILY 03/19/19 [History Confirmed 06/06/24] Allergies/Adverse Reactions: Allergies Allergy/AdvReac Type Severity Reaction Status Date / Time Corticosteroids Allergy Intermediate CHF Verified 06/06/24 16:29 (Glucocorticoids) Androgenic Anabolic Steroid Allergy Verified 06/06/24 16:29 chocolate Allergy Verified 06/06/24 16:29 egg Allergy Verified 06/06/24 16:29 gluten Allergy Verified 06/06/24 16:29 lactase [From Dairy Aid] Allergy Verified 06/06/24 16:29 oats Allergy Verified 06/06/24 16:29 onion Allergy Verified 06/06/24 16:29 wheat Allergy Verified 06/06/24 16:29 - Past Medical History Past Medical History: Yes Neurological History: No Pertinent History ENT History: No Pertinent History Cardiac History: Hypertension Respiratory History: No Pertinent History Endocrine Medical History: No Pertinent History Musculoskelatal History: No Pertinent History GI Medical History: GERD History: No Pertinent History Pyscho-Social History: No Pertinent History Reproductive Disorders: No Pertinent History Comment: seasonal allergies - Past Surgical History Past Surgical History: Yes Neuro Surgical History: No Pertinent History Cardiac History: No Pertinent History Respiratory Surgery: No Pertinent History GI Surgical History: No Pertinent History Genitourinary Surgical Hx: No Pertinent History Musculskeletal Surgical Hx: Orthopedic Surgery, Other Female Surgical History: No Pertinent History, Other Other Surgical History: bone spurs Significant Family History: no pertinent family hx - Social History Smoking Status: Never smoker Exposure to second hand smoke: No Alcohol: None Drug Use: none - Social Determinants of Health Will the patient participate in the screening: Yes Do you worry about a steady place to live?: No Do you have any problems with any of the following?: No known problems In the past 12 months,have you had to go without utilities?: No Have you or anyone in your house had to go without enough: No Transportation Issues: No Has anyone in your support network made you feel unsafe?: No Does the patient want assistance with any of the above?: No - Physical Exam Vital Signs: Vital Signs - 24 hr Temp Pulse Resp BP BP Pulse Ox 06/06/24 22:29 97.0 F 66 20 162/72 97 06/06/24 21:57 99 06/06/24 19:00 78 13 135/86 06/06/24 18:37 80 11 L 147/87 06/06/24 18:00 76 14 138/80 06/06/24 17:31 81 13 148/88 06/06/24 17:00 79 9 L 150/86 06/06/24 16:23 98.3 F 93 H 15 160/90 99 General Appearance: no apparent distress, alert Neurologic Exam: alert, oriented x 3, cooperative, normal mood/affect, nml cerebellar function, nml station & gait, sensation nml, No motor deficits Eye Exam: PERRL/EOMI, eyes nml inspection Ears, Nose, Throat Exam: normal ENT inspection, TMs normal, pharynx normal, moist mucous membranes Neck Exam: normal inspection, non-tender, supple, full range of motion Respiratory Exam: normal breath sounds, lungs clear, No respiratory distress Cardiovascular Exam: regular rate/rhythm, normal heart sounds, normal peripheral pulses Gastrointestinal/Abdomen Exam: soft, normal bowel sounds, No tenderness, No mass Back Exam: normal inspection, normal range of motion, No CVA tenderness, No v ertebral tenderness Extremity Exam: normal inspection, normal range of motion, pelvis stable Skin Exam: normal color, warm, dry, No rash Lymphatic Exam: No adenopathy Results - Labs Lab/Micro Results: Lab Results-Last 24 Hours 06/06/24 06/06/24 06/06/24 Range/Units 17:20 17:20 17:20 WBC 3.9 L (3.98-10.04) x10^3/uL RBC 4.71 (3.93-5.22) x10^6/uL Hgb 14.0 (11.2-15.7) g/dL Hct 41.1 (34.1-44.9) % MCV 87.3 (79.4-94.8) fL MCH 29.7 (25.6-32.2) pg MCHC 34.1 (32.2-35.5) g/dL RDW 12.9 (11.7-14.4) % Plt Count 168 L (182-369) x10^3/uL MPV 9.6 (9.4-12.3) fL Gran % 63.7 (34.0-71.1) % Immature Gran % (Auto) 0.3 (0.001-0.429) % Nucleat RBC Rel Count 0.0 (0.00-0.2) % Eos # (Auto) 0.06 (0.04-0.36) x10^3/uL Immature Gran # (Auto) 0.01 (0.001-0.031) x10^3u/L Absolute Lymphs (auto) 1.04 L (1.18-3.74) x10^3/uL Absolute Monos (auto) 0.29 (0.24-0.86) x10^3/uL Absolute Nucleated RBC 0.00 (0.00-0.012) x10^3u/L Lymphocytes % 26.7 (19.3-51.7) % Monocytes % 7.5 (4.7-12.5) % Eosinophils % 1.5 (0.7-5.8) % Basophils % 0.3 (0.1-1.2) % Absolute Granulocytes 2.48 (1.56-6.13) x10^3/uL Basophils # 0.01 (0.01-0.08) x10^3/uL Sodium 138 (135-145) mmol/L Potassium 3.8 (3.5-5.1) mmol/L Chloride 102 (98-107) mmol/L Carbon Dioxide 29 (22-30) mmol/L Anion Gap 11.2 (5-15) MEQ/L BUN 20 H (7-17) mg/dL Creatinine 1.23 H (0.52-1.04) mg/dL Estimated GFR 50.3 ML/MIN Glucose 131 H (74-106) mg/dL Calcium 9.4 (8.4-10.2) mg/dL Magnesium 2.1 (1.6-2.3) mg/dL Total Bilirubin 0.80 (0.2-1.3) mg/dL AST 33 (14-36) U/L ALT 29 (0-35) U/L Alkaline Phosphatase 91 (38-126) U/L Troponin I < 0.012 (0.000-0.033) ng/mL Serum Total Protein 7.3 (6.3-8.2) g/dL Albumin 4.4 (3.5-5.0) g/dL Amylase 74 (30-110) U/L Lipase 203 (23-300) U/L Urine Color (Yellow) Urine Appearance (Clear) Urine pH (4.6-8.0) Ur Specific [place] (1.005-1.030) Urine Protein (Negative) Urine Glucose (UA) (Negative) mg/dL Urine Ketones (Negative) Urine Blood (Negative) Urine Nitrite (Negative) Urine Bilirubin (Negative) Urine Urobilinogen (0.2) mg/dL Ur Leukocyte Esterase (Negative) U Hyaline Cast (Auto) (0-2) /LPF Urine Microscopic RBC (0-5) /HPF Urine Microscopic WBC (0-5) /HPF Ur Epithelial Cells (None Seen) /HPF Urine Bacteria (None Seen) /HPF Urine Culture Reflexed (NO) 06/06/24 06/06/24 Range/Units 17:44 21:15 WBC (3.98-10.04) x10^3/uL RBC (3.93-5.22) x10^6/uL Hgb (11.2-15.7) g/dL Hct (34.1-44.9) % MCV (79.4-94.8) fL MCH (25.6-32.2) pg MCHC (32.2-35.5) g/dL RDW (11.7-14.4) % Plt Count (182-369) x10^3/uL MPV (9.4-12.3) fL Gran % (34.0-71.1) % Immature Gran % (Auto) (0.001-0.429) % Nucleat RBC Rel Count (0.00-0.2) % Eos # (Auto) (0.04-0.36) x10^3/uL Immature Gran # (Auto) (0.001-0.031) x10^3u/L Absolute Lymphs (auto) (1.18-3.74) x10^3/uL Absolute Monos (auto) (0.24-0.86) x10^3/uL Absolute Nucleated RBC (0.00-0.012) x10^3u/L Lymphocytes % (19.3-51.7) % Monocytes % (4.7-12.5) % Eosinophils % (0.7-5.8) % Basophils % (0.1-1.2) % Absolute Granulocytes (1.56-6.13) x10^3/uL Basophils # (0.01-0.08) x10^3/uL Sodium (135-145) mmol/L Potassium (3.5-5.1) mmol/L Chloride (98-107) mmol/L Carbon Dioxide (22-30) mmol/L Anion Gap (5-15) MEQ/L BUN (7-17) mg/dL Creatinine (0.52-1.04) mg/dL Estimated GFR ML/MIN Glucose (74-106) mg/dL Calcium (8.4-10.2) mg/dL Magnesium (1.6-2.3) mg/dL Total Bilirubin (0.2-1.3) mg/dL AST (14-36) U/L ALT (0-35) U/L Alkaline Phosphatase (38-126) U/L Troponin I < 0.012 (0.000-0.033) ng/mL Serum Total Protein (6.3-8.2) g/dL Albumin (3.5-5.0) g/dL Amylase (30-110) U/L Lipase (23-300) U/L Urine Color Yellow (Yellow) Urine Appearance Cloudy A (Clear) Urine pH 8.5 A (4.6-8.0) Ur Specific [place] 1.020 (1.005-1.030) Urine Protein Negative (Negative) Urine Glucose (UA) Negative (Negative) mg/dL Urine Ketones Negative (Negative) Urine Blood Negative (Negative) Urine Nitrite Negative (Negative) Urine Bilirubin Negative (Negative) Urine Urobilinogen 1.0 A (0.2) mg/dL Ur Leukocyte Esterase Trace A (Negative) U Hyaline Cast (Auto) NONE SEEN (0-2) /LPF Urine Microscopic RBC 0-2 (0-5) /HPF Urine Microscopic WBC 0-2 (0-5) /HPF Ur Epithelial Cells None Seen (None Seen) /HPF Urine Bacteria None Seen (None Seen) /HPF Urine Culture Reflexed NO (NO) - Radiology Impressions Radiology Exams & Impressions: Radiology Procedures Category Date Time Status CHEST WITH CONTRAST [CT] Stat Exams 06/06/24 17:06 Completed - Other Procedures and Tests Respiratory Therapy 06/06/24 22:21 EKG REPEAT IN AM Oxygen Nasal Cannula 2 lpm Assessment/Plan (1) Chest pain Current Visit: Yes Status: Acute Assessment & Plan: ASSESSMENT 1. Chest Pain 2. Acute vs. Acute on Chronic vs. Chronic Kidney Disease 3. Urinary Tract Infection 4. Anxiety Disorder PLAN 1. Chest pain free; Troponin negative x 2; some non-specific ST changes; most likely non-cardiac chest pain 2. Recommend outpatient Coronary Calcium CT + Stress test 3. Follow-up on Cr with AM labs 4. Would not treat urine 5. Management of stress recommended (exercise, meditation, etc.) The entirety of this encounter was done via telemedicine with audio and visual. Consent was obtained for a telemedicine encounter. Hua Rodrigez MD Pulmonary and Critical Care Medicine Code(s): R07.9 - CHEST PAIN, UNSPECIFIED Telemedicine Encounter - Telemedicine Encounter Telemedicine Encounter: "The entirety of this encounter was performed via Telemedicine" This visit was performed using real-time audio and video connection between my location and thepatients locationwith the assistance of a surrogateat the patients location. Written or verbal consent was obtained from the patient/guardian to perform this visit [facility]. Any patient questions regarding the telemedicine interaction were answered.
[2024-06-07 06:17] LABS: Absolute Neutrophil Ct (ANC) 2.65 x10^3/uL (1.56-6.13); BASOPHIL % 0.2 % (0.1-1.2); Basophil (Absolute #) 0.01 x10^3/uL (0.01-0.08); Eosinophil % 1.8 % (0.7-5.8); Eosinophil (Absolute #) 0.09 x10^3/uL (0.04-0.36); Hematocrit 38.3 % (34.1-44.9); Hemoglobin 13.3 g/dL (11.2-15.7); IMMATURE GRAN # 0.01 x10^3u/L (0.001-0.031); IMMATURE GRAN % 0.2 % (0.001-0.429); Lymphocytes % 36.3 % (19.3-51.7); Mean Cell Volume 87.2 fL (79.4-94.8); Mean Corpuscular Hemoglobin 30.3 pg (25.6-32.2); Mean Corpuscular Hgb Concent. 34.7 g/dL (32.2-35.5); Mean Platelet Volume 9.6 fL (9.4-12.3); Monocytes % 8.1 % (4.7-12.5); Neutrophil % 53.4 % (34.0-71.1); Platelet Count 162 x10^3/uL (182-369); Red Blood Count 4.39 x10^6/uL (3.93-5.22); Red Cell Distribution Width 12.7 % (11.7-14.4)
[2024-06-07 06:41] LABS: ALBUMIN 3.9 g/dL (3.5-5.0); ANION GAP 9.7 MEQ/L (5-15); BILIRUBIN,TOTAL 0.9 mg/dL (0.2-1.3); Calcium 9.1 mg/dL (8.4-10.2); Creatinine 1 0.99 mg/dL (0.52-1.04); EST GLOMERULAR FILTRATION RATE 65.3 ML/MIN; Potassium 3.7 mmol/L (3.5-5.1); Total Protein 6.5 g/dL (6.3-8.2)
[2024-06-07] MEDS ORDERED: NON-FORMULARY ITEM (Omeprazole [Omeprazole] 20 MG Capsule.Dr) PO SCH (10:00)
[2024-06-07] MEDS: CLARITIN 10 MG PO SCH (11:05)
[2024-06-07] MEDS: Protonix 40MG Tablet PO SCH (11:05)
[2024-06-07] MEDS: Ecotrin 325 MG PO SCH (11:05)
--- NOTE | 2024-06-07 11:09 | PCM.DS ---
Discharge Summary Date of Admission: 06/06/24 22:17 Date of Discharge: 06/07/24 Admitting Physician: EDUARD BLANKENSHIP MD Primary Care Provider: INESSA DARBY Allergies Allergies Corticosteroids (Glucocorticoids) Allergy (Intermediate, Verified 06/06/24 16:29) CHF PT REPORTS STEROIDS GAVE HER CHF. Androgenic Anabolic Steroid Allergy (Verified 06/06/24 16:29) chocolate Allergy (Verified 06/06/24 16:29) egg Allergy (Verified 06/06/24 16:29) gluten Allergy (Verified 06/06/24 16:29) lactase [From Dairy Aid] Allergy (Verified 06/06/24 16:29) oats Allergy (Verified 06/06/24 16:29) onion Allergy (Verified 06/06/24 16:29) wheat Allergy (Verified 06/06/24 16:29) Hospital Summary - Hospital Course Hospital Course: Ms. Melo is a 59 year-old female with no past medical history who presents with chest pain. She admits to 12 hours of ongoing chest pain - pressure; radiating to back; associated nausea and shortness of breath. Upon arrival to [place], laboratory data and imaging (CTA chest) was unremarkable. On my examination, she is chest pain free denying any current fevers, chills, nausea, vomiting, diarrhea, syncope, presyncope, visual changes, orthopnea, PND, odynophagia, dysphagia, chest pain, shortness of breath, belly pain, dysuria, hematuria, melena, hematochezia, or neurological changes. All other systems were reviewed and were negative. Troponin series negative. TRAMAINE resolved. EKG -non specific ST changes -most likely non-cardiac chest pain. Advised follow up with PCP for stress test/coronary calcium CT. Patient agreeable to plan and stable for discharge. Discharge Note New Diagnosis:CP New Medications: ASA Follow Up: PCP Latest Assessment & Plan (1) Chest pain Current Visit: Yes Status: Acute Assessment & Plan: ASSESSMENT 1. Chest Pain 2. Acute vs. Acute on Chronic vs. Chronic Kidney Disease 3. Urinary Tract Infection 4. Anxiety Disorder PLAN 1. Chest pain free; Troponin negative x 2; some non-specific ST changes; most likely non-cardiac chest pain 2. Recommend outpatient Coronary Calcium CT + Stress test 3. Follow-up on Cr with AM labs 4. Would not treat urine 5. Management of stress recommended (exercise, meditation, etc.) I spent 35 minutes [id number] with the patient on the day of discharge performing discharge exam, discussing hospital stay and discharge instructions with patient and caregivers, preparation of discharge records, prescriptions & referral forms and addressing any questions/concerns the patient had as documented above. - Vitals & Intake/Output Vital Signs: Vital Signs Temperature 97.5 F 06/07/24 07:16 Pulse Rate 63 06/07/24 07:16 Respiratory Rate 11 L 06/07/24 07:16 Blood Pressure 121/74 06/07/24 07:16 O2 Sat by Pulse Oximetry 97 06/07/24 07:16 Intake & Output: Intake & Output 06/04/24 06/05/24 06/06/24 06/07/24 11:59 11:59 11:59 11:59 Intake Total 540 Balance 540 Weight 87.2 kg - Lab Result Diagrams: 06/07/24 06:00 06/07/24 06:00 Lab Results-Last 24 Hrs: Lab Results-Last 24 Hours 06/06/24 06/06/24 06/06/24 Range/Units 17:20 17:20 17:20 WBC 3.9 L (3.98-10.04) x10^3/uL RBC 4.71 (3.93-5.22) x10^6/uL Hgb 14.0 (11.2-15.7) g/dL Hct 41.1 (34.1-44.9) % MCV 87.3 (79.4-94.8) fL MCH 29.7 (25.6-32.2) pg MCHC 34.1 (32.2-35.5) g/dL RDW 12.9 (11.7-14.4) % Plt Count 168 L (182-369) x10^3/uL MPV 9.6 (9.4-12.3) fL Gran % 63.7 (34.0-71.1) % Immature Gran % (Auto) 0.3 (0.001-0.429) % Nucleat RBC Rel Count 0.0 (0.00-0.2) % Eos # (Auto) 0.06 (0.04-0.36) x10^3/uL Immature Gran # (Auto) 0.01 (0.001-0.031) x10^3u/L Absolute Lymphs (auto) 1.04 L (1.18-3.74) x10^3/uL Absolute Monos (auto) 0.29 (0.24-0.86) x10^3/uL Absolute Nucleated RBC 0.00 (0.00-0.012) x10^3u/L Lymphocytes % 26.7 (19.3-51.7) % Monocytes % 7.5 (4.7-12.5) % Eosinophils % 1.5 (0.7-5.8) % Basophils % 0.3 (0.1-1.2) % Absolute Granulocytes 2.48 (1.56-6.13) x10^3/uL Basophils # 0.01 (0.01-0.08) x10^3/uL Sodium 138 (135-145) mmol/L Potassium 3.8 (3.5-5.1) mmol/L Chloride 102 (98-107) mmol/L Carbon Dioxide 29 (22-30) mmol/L Anion Gap 11.2 (5-15) MEQ/L BUN 20 H (7-17) mg/dL Creatinine 1.23 H (0.52-1.04) mg/dL Estimated GFR 50.3 ML/MIN Glucose 131 H (74-106) mg/dL Calcium 9.4 (8.4-10.2) mg/dL Magnesium 2.1 (1.6-2.3) mg/dL Total Bilirubin 0.80 (0.2-1.3) mg/dL AST 33 (14-36) U/L ALT 29 (0-35) U/L Alkaline Phosphatase 91 (38-126) U/L Troponin I < 0.012 (0.000-0.033) ng/mL Serum Total Protein 7.3 (6.3-8.2) g/dL Albumin 4.4 (3.5-5.0) g/dL Amylase 74 (30-110) U/L Lipase 203 (23-300) U/L Urine Color (Yellow) Urine Appearance (Clear) Urine pH (4.6-8.0) Ur Specific [place] (1.005-1.030) Urine Protein (Negative) Urine Glucose (UA) (Negative) mg/dL Urine Ketones (Negative) Urine Blood (Negative) Urine Nitrite (Negative) Urine Bilirubin (Negative) Urine Urobilinogen (0.2) mg/dL Ur Leukocyte Esterase (Negative) U Hyaline Cast (Auto) (0-2) /LPF Urine Microscopic RBC (0-5) /HPF Urine Microscopic WBC (0-5) /HPF Ur Epithelial Cells (None Seen) /HPF Urine Bacteria (None Seen) /HPF Urine Culture Reflexed (NO) 06/06/24 06/06/24 06/07/24 Range/Units 17:44 21:15 06:00 WBC (3.98-10.04) x10^3/uL RBC (3.93-5.22) x10^6/uL Hgb (11.2-15.7) g/dL Hct (34.1-44.9) % MCV (79.4-94.8) fL MCH (25.6-32.2) pg MCHC (32.2-35.5) g/dL RDW (11.7-14.4) % Plt Count (182-369) x10^3/uL MPV (9.4-12.3) fL Gran % (34.0-71.1) % Immature Gran % (Auto) (0.001-0.429) % Nucleat RBC Rel Count (0.00-0.2) % Eos # (Auto) (0.04-0.36) x10^3/uL Immature Gran # (Auto) (0.001-0.031) x10^3u/L Absolute Lymphs (auto) (1.18-3.74) x10^3/uL Absolute Monos (auto) (0.24-0.86) x10^3/uL Absolute Nucleated RBC (0.00-0.012) x10^3u/L Lymphocytes % (19.3-51.7) % Monocytes % (4.7-12.5) % Eosinophils % (0.7-5.8) % Basophils % (0.1-1.2) % Absolute Granulocytes (1.56-6.13) x10^3/uL Basophils # (0.01-0.08) x10^3/uL Sodium (135-145) mmol/L Potassium (3.5-5.1) mmol/L Chloride (98-107) mmol/L Carbon Dioxide (22-30) mmol/L Anion Gap (5-15) MEQ/L BUN (7-17) mg/dL Creatinine (0.52-1.04) mg/dL Estimated GFR ML/MIN Glucose (74-106) mg/dL Calcium (8.4-10.2) mg/dL Magnesium (1.6-2.3) mg/dL Total Bilirubin (0.2-1.3) mg/dL AST (14-36) U/L ALT (0-35) U/L Alkaline Phosphatase (38-126) U/L Troponin I < 0.012 < 0.012 (0.000-0.033) ng/mL Serum Total Protein (6.3-8.2) g/dL Albumin (3.5-5.0) g/dL Amylase (30-110) U/L Lipase (23-300) U/L Urine Color Yellow (Yellow) Urine Appearance Cloudy A (Clear) Urine pH 8.5 A (4.6-8.0) Ur Specific [place] 1.020 (1.005-1.030) Urine Protein Negative (Negative) Urine Glucose (UA) Negative (Negative) mg/dL Urine Ketones Negative (Negative) Urine Blood Negative (Negative) Urine Nitrite Negative (Negative) Urine Bilirubin Negative (Negative) Urine Urobilinogen 1.0 A (0.2) mg/dL Ur Leukocyte Esterase Trace A (Negative) U Hyaline Cast (Auto) NONE SEEN (0-2) /LPF Urine Microscopic RBC 0-2 (0-5) /HPF Urine Microscopic WBC 0-2 (0-5) /HPF Ur Epithelial Cells None Seen (None Seen) /HPF Urine Bacteria None Seen (None Seen) /HPF Urine Culture Reflexed NO (NO) 06/07/24 06/07/24 Range/Units 06:00 06:00 WBC 5.0 (3.98-10.04) x10^3/uL RBC 4.39 (3.93-5.22) x10^6/uL Hgb 13.3 (11.2-15.7) g/dL Hct 38.3 (34.1-44.9) % MCV 87.2 (79.4-94.8) fL MCH 30.3 (25.6-32.2) pg MCHC 34.7 (32.2-35.5) g/dL RDW 12.7 (11.7-14.4) % Plt Count 162 L (182-369) x10^3/uL MPV 9.6 (9.4-12.3) fL Gran % 53.4 (34.0-71.1) % Immature Gran % (Auto) 0.2 (0.001-0.429) % Nucleat RBC Rel Count 0.0 (0.00-0.2) % Eos # (Auto) 0.09 (0.04-0.36) x10^3/uL Immature Gran # (Auto) 0.01 (0.001-0.031) x10^3u/L Absolute Lymphs (auto) 1.80 (1.18-3.74) x10^3/uL Absolute Monos (auto) 0.40 (0.24-0.86) x10^3/uL Absolute Nucleated RBC 0.00 (0.00-0.012) x10^3u/L Lymphocytes % 36.3 (19.3-51.7) % Monocytes % 8.1 (4.7-12.5) % Eosinophils % 1.8 (0.7-5.8) % Basophils % 0.2 (0.1-1.2) % Absolute Granulocytes 2.65 (1.56-6.13) x10^3/uL Basophils # 0.01 (0.01-0.08) x10^3/uL Sodium 138 (135-145) mmol/L Potassium 3.7 (3.5-5.1) mmol/L Chloride 105 (98-107) mmol/L Carbon Dioxide 27 (22-30) mmol/L Anion Gap 9.7 (5-15) MEQ/L BUN 14 (7-17) mg/dL Creatinine 0.99 (0.52-1.04) mg/dL Estimated GFR 65.3 ML/MIN Glucose 96 (74-106) mg/dL Calcium 9.1 (8.4-10.2) mg/dL Magnesium 2.0 (1.6-2.3) mg/dL Total Bilirubin 0.90 (0.2-1.3) mg/dL AST 28 (14-36) U/L ALT 25 (0-35) U/L Alkaline Phosphatase 61 (38-126) U/L Troponin I (0.000-0.033) ng/mL Serum Total Protein 6.5 (6.3-8.2) g/dL Albumin 3.9 (3.5-5.0) g/dL Amylase (30-110) U/L Lipase (23-300) U/L Urine Color (Yellow) Urine Appearance (Clear) Urine pH (4.6-8.0) Ur Specific [place] (1.005-1.030) Urine Protein (Negative) Urine Glucose (UA) (Negative) mg/dL Urine Ketones (Negative) Urine Blood (Negative) Urine Nitrite (Negative) Urine Bilirubin (Negative) Urine Urobilinogen (0.2) mg/dL Ur Leukocyte Esterase (Negative) U Hyaline Cast (Auto) (0-2) /LPF Urine Microscopic RBC (0-5) /HPF Urine Microscopic WBC (0-5) /HPF Ur Epithelial Cells (None Seen) /HPF Urine Bacteria (None Seen) /HPF Urine Culture Reflexed (NO) - Radiology Exams Ordered Rad Exams-Entire Visit: Radiology Procedures Category Date Time Status CHEST WITH CONTRAST [CT] Stat Exams 06/06/24 17:06 Completed - Procedures and Test Procedures and Tests throughout Hospitalization: Therapy Orders & Screens 06/06/24 22:21 EKG REPEAT IN AM Comment: Oxygen Nasal Cannula 2 lpm Comment: Discharge Exam General Appearance: no apparent distress Neurologic Exam: alert, oriented x 3, cooperative Eye Exam: PERRL Ears, Nose, Throat Exam: normal ENT inspection Neck Exam: normal inspection Respiratory Exam: normal breath sounds, lungs clear Cardiovascular Exam: regular rate/rhythm, normal heart sounds Gastrointestinal/Abdomen Exam: soft, normal bowel sounds Pelvic Exam: deferred Rectal Exam: deferred Back Exam: normal inspection Extremity Exam: normal inspection Skin Exam: normal color Final Diagnosis/Problem List - Final Discharge Diagnosis/Problem (1) Chest pain Current Visit: Yes Status: Resolved Code(s): R07.9 - CHEST PAIN, UNSPECIFIED (2) TRAMAINE (acute kidney injury) Current Visit: Yes Status: Resolved Code(s): N17.9 - ACUTE KIDNEY FAILURE, UNSPECIFIED (3) Anxiety Current Visit: Yes Status: Chronic Code(s): F41.9 - ANXIETY DISORDER, UNSPECIFIED (4) GERD (gastroesophageal reflux disease) Current Visit: Yes Status: Chronic Code(s): K21.9 - GASTRO-ESOPHAGEAL REFLUX DISEASE WITHOUT ESOPHAGITIS - Discharge Discharge Date: 06/07/24 Condition: Stable Prescriptions: New Aspirin EC 81 mg [Ecotrin 81 mg] 81 mg PO DAILY 30 Days #30 tablet Continue Fluticasone Propionate [Flonase NASAL] 16 gm NS DAILY Loratadine 10 mg [Claritin 10 mg] 10 mg PO DAILY Omeprazole 20 mg PO DAILY Follow up with: INESSA DARBY [Primary Care Provider] -
[2024-06-07] MEDS: Flonase NASAL NS SCH (11:43)
[2024-06-07 12:00] VITALS: BP 143/84; PULSE 72; RESP 14; TEMP 97.1; O2SAT 99
== END 2024-06-07 12:02 | disposition home or self-care (01) ==
LOC: ED 16:16 → MED SURG 22:17
PROVIDERS: ADMIT Internal Medicine Critical Care Medicine; ATTEND Internal Medicine Critical Care Medicine
DX: R07.9 Chest pain, unspecified (principal); N17.9 Acute kidney failure, unspecified; F41.9 Anxiety disorder, unspecified; K21.9 Gastro-esophageal reflux disease without esophagitis; R06.00 Dyspnea, unspecified; Z79.899 Other long term (current) drug therapy
CPT/HCPCS: 36000; 36415; 71260; 80053; 81001; 82150; 83690; 83735; 84484; 85025; 93005; 93268; 99284; G0378; Q3014; A9270-GY

== ENCOUNTER 2024-12-04 10:39 | Emergency (ER) | payer OTHER ==
[2024-12-04 11:17] VITALS: RESP 16; TEMP 97.8
[2024-12-04] MEDS ORDERED: BACIGUENT PACKET ONE (11:28)
[2024-12-04] MEDS: BACIGUENT PACKET TP ONE (11:30)
[2024-12-04 11:36] VITALS: BP 127/81; PULSE 74; O2SAT 100
--- NOTE | 2024-12-04 11:38 | ERPHSYRPT ---
- History of Present Illness Time Seen by Provider: 12/04/24 10:41 Source: patient Exam Limitations: no limitations Patient Subjective Stated Complaint: pt states that she has a splinter under her nail Triage Nursing Assessment: pt ambulated into the er; pt is axo x4; c/o splinter; pt states 4/10 pain to rt ring finger; no redness or swelling present to rt ring finger; skin PDW; no respiratory distress present; vitals wnl Physician History: 59 years old female unsure about tetanus status presented in the ER with wood splinter underneath right hand fourth digit nail prior to arrival while she was working on her apartment. Patient reports dull aching pain. Tried to take it out but was not coming. Patient does not want tetanus shot. Allergies/Adverse Reactions: Corticosteroids (Glucocorticoids) Allergy (Intermediate, Verified 12/04/24 11:06) CHF PT REPORTS STEROIDS GAVE HER CHF. Androgenic Anabolic Steroid Allergy (Verified 12/04/24 11:06) chocolate Allergy (Verified 12/04/24 11:06) egg Allergy (Verified 12/04/24 11:06) gluten Allergy (Verified 12/04/24 11:06) lactase [From Dairy Aid] Allergy (Verified 12/04/24 11:06) oats Allergy (Verified 12/04/24 11:06) onion Allergy (Verified 12/04/24 11:06) wheat Allergy (Verified 12/04/24 11:06) Home Medications: Fluticasone Propionate [Flonase NASAL] 16 gm NS DAILY 08/29/18 [History] Loratadine 10 mg [Claritin 10 mg] 10 mg PO DAILY 12/23/18 [History] Omeprazole 20 mg PO DAILY 03/19/19 [History] Amlodipine Besylate 2.5 mg PO DAILY 12/04/24 [History] Atorvastatin Calcium 10 mg PO DAILY 12/04/24 [History] Magnesium Oxide 400 mg [Mag-Ox 400] 400 mg PO DAILY 12/04/24 [History] Hx Tetanus, Diphtheria Vaccination/Date Given: No Hx Influenza Vaccination/Date Given: No Hx Pneumococcal Vaccination/Date Given: No Travel Risk - International Travel Have you traveled outside of the country in past 3 weeks: No - Emerging Infectious Disease Are you exhibiting symptoms associated with any current EIDs: No - Review of Systems Constitutional: No Symptoms Respiratory: No Symptoms Cardiac: No Symptoms Musculoskeletal: No Symptoms, Injury Skin: Skin Lesions Neurological: No Symptoms - Past Medical History Pertinent Past Medical History: Yes Neurological History: No Pertinent History ENT History: No Pertinent History Cardiac History: High Cholesterol, Hypertension Respiratory History: No Pertinent History Endocrine Medical History: No Pertinent History Musculoskeletal History: No Pertinent History GI Medical History: GERD History: No Pertinent History Psycho-Social History: No Pertinent History Female Reproductive Disorders: No Pertinent History Other Medical History: seasonal allergies, skin cancer - Past Surgical History Past Surgical History: Yes Neuro Surgical History: No Pertinent History Cardiac: No Pertinent History Respiratory: No Pertinent History Gastrointestinal: No Pertinent History Genitourinary: No Pertinent History Musculoskeletal: Orthopedic Surgery, Other Female Surgical History: No Pertinent History, Other Other Surgical History: bone spurs Significant Family History: no pertinent family hx - Social History Smoking Status: Never smoker Exposure to second hand smoke: No Drug Use: none - Social Determinants of Health Will the patient participate in the screening: Yes Do you worry about a steady place to live?: No Do you have any problems with any of the following?: No known problems In the past 12 months,have you had to go without utilities?: No Transportation Issues: No Has anyone in your support network made you feel unsafe?: No Have you or anyone in your house had to go w/o enough food: No - Nursing Vital Signs Nursing Vital Signs: Initial Vital Signs Pulse Rate 79 12/04/24 11:06 Blood Pressure 145/88 12/04/24 11:06 O2 Sat by Pulse Oximetry 98 12/04/24 11:06 Pain Scale Pain Intensity 2 - Physical Exam General Appearance: no apparent distress Eye Exam: PERRL/EOMI Neck Exam: normal inspection, full range of motion Respiratory Exam: normal breath sounds, lungs clear Cardiovascular Exam: regular rate/rhythm, normal heart sounds Extremity Exam: normal range of motion, pelvis stable, other (Small splinter underneath right hand fourth digit nail) Neurologic Exam: alert, oriented x 3, cooperative SpO2 Interpretation: normal SpO2: 100 O2 Delivery: Room Air Procedures - Additional Procedures Progress: Foreign body removal right hand fourth digit. Wooden splinter underneath the nail. Thoroughly cleaned. 19-gauge needle used to move it around underneath the nail, tip of nail is broken and splinter pulled out. Patient tolerated procedure well. Ordered Tests: Medication Summary Discontinued Medications Generic Name Dose Route Start Last Admin Trade Name Cosme PRN Reason Stop Dose Admin Bacitracin Zinc 0.9 each 12/04/24 11:29 12/04/24 11:30 Bacitracin Packet 1 Each Pckt TP 12/04/24 11:30 0.9 each STAT ONE Administration Bacitracin Zinc Confirm 12/04/24 11:28 Bacitracin Packet 1 Each Pckt Administered 12/04/24 11:29 Dose 1 each .ROUTE .STK-MED ONE - Progress Progress: improved Progress Note: 12/04/24 11:37 59 years old is evaluated in the ER for splinter right hand fourth digit nail. Under aseptic measures it is removed intact. No obvious remnants. Dressing applied. Recommended Tylenol ibuprofen as needed. Offered tetanus shot which he declined. Discussed signs symptoms of worsening needing return to ER which she seems understanding. Stable for discharge. Counseled pt/family regarding: diagnosis, need for follow-up Medical Desision Making - Risk of complications The pt has a mod risk of morbidity or mortality based on: Need for minor surgical intervention in patient with know risk factors - Departure Departure Disposition: Home Clinical Impression: Foreign body of finger of right hand Condition: Stable Critical Care Time: No Referrals: INESSA DARBY [Primary Care Provider] - Follow up with PCP 1 day Instructions: Wound Care (DC) Additional Instructions: Take Tylenol/ibuprofen as needed. Keep it clean and dry. Follow-up with PCP for reevaluation. Return to ER for increasing pain swelling redness discharge etc.
== END 2024-12-04 11:41 | disposition home or self-care (01) ==
LOC: ED 10:39
DX: S60.454A Superficial foreign body of right ring finger, initial encounter (principal); W45.8XXA Other foreign body or object entering through skin, initial encounter; E78.5 Hyperlipidemia, unspecified; I10 Essential (primary) hypertension; Z79.899 Other long term (current) drug therapy
CPT/HCPCS: 99282; A9270-GY